=== PATIENT | female | born 1990 | race Caucasian/White ===

== ENCOUNTER 2019-09-29 18:36 | Emergency (ER) | payer MEDICAID, SELFPAY ==
[2019-09-29 18:43] VITALS: BP 151/86; PULSE 103; RESP 18; TEMP 37; O2SAT 100
--- NOTE | 2019-09-29 18:53 | XR_ITS ---
WS: [id number] CHEST XRAY TECHNIQUE: Portable chest. CLINICAL INFORMATION: fever and URI symptoms COMPARISON: FINDINGS: Heart: Normal cardiac silhouette. Lungs: Lungs are well aerated. No acute pulmonary infiltrates. No focal pneumonia. No consolidation o r pleural fluid. Bones: Mild thoracic curve convex right. XR/XR chest 1V portable [id number] IMPRESSION: No acute chest findings
--- NOTE | 2019-09-29 19:33 | W.ED.GENADLT ---
HPI - General Adult General: Chief complaint: General Medical Stated complaint: flu symptoms Time Seen by Provider: 09/29/19 19:26 History of Present Illness: HPI narrative: Patient is a 29-year-old female who comes into the knee with fever chills and body aches. She's had these symptoms for the past 3 days. She also has a productive cough with clear sputum. She has not taken any Tylenol or ibuprofen for her fevers at home. She is still drinking and eating normally. Associated symptoms: Deny chest pain, dyspnea, headache(s), nausea, rash, palpitations or vomiting Review of Systems Const: Reports: fever, chills and body aches; Denies: fatigue Eyes: Denies: change in vision or eye discomfort ENMT: Denies: throat pain, painful swallowing, nasal discharge or nasal congestion Card: Denies: chest pain, palpitations, edema, swelling of feet/ankles, shortness of breath on exertion or shortness of breath when lying down Resp: Reports: productive cough; Denies: shortness of breath or non-productive cough GI: Denies: abdominal pain, nausea, vomiting, diarrhea, constipation or blood in stool : Denies: flank pain, painful urination or blood in urine Musc: Denies: neck pain, back pain or extremity swelling Skin/Breast: Denies: rash or new lesion Neuro: Denies: headache, numbness in extremities or weakness in extremities PFSH ED PFSH: Social History Smoking and tobacco status: current every day smoker Physical Exam Const: COMMON NORMALS: oriented x3 HENMT: COMMON NORMALS: normocephalic HEAD & SCALP: normocephalic MOUTH: oral and palatal mucosa normal THROAT: posterior oropharynx normal and uvula midline Neck/C-Spine: COMMON NORMALS: supple GENERAL: Yes normal visual inspection Lymph: LYMPHATIC: no lymphadenopathy noted Resp: COMMON NORMALS: normal respiratory effort, no retractions, no use of accessory muscles and clear to auscultation bilaterally AUSCULTATION: clear to auscultation bilaterally Cardio: COMMON NORMALS: regular rate, regular rhythm, S1 normal heart sound, S2 normal heart sound, no gallops, no clicks, no murmurs and peripheral pulses 2+ throughout RATE: regular rate RHYTHM: regular rhythm HEART SOUNDS: S1 normal and S2 normal PERIPHERAL PULSES: pulses 2+ throughout GI: COMMON NORMALS: normal to inspection, nondistended, normoactive bowel sounds, soft to palpation, non-tender and no masses PALPATION: Yes soft : COMMON NORMALS: Yes no CVA tenderness BLADDER/KIDNEY EXAM: Yes no CVA tenderness Back/Pelvis: COMMON NORMALS: no CVA tenderness Extremity: COMMON NORMALS: normal to inspection and normal capillary refill Neuro: COMMON NORMALS: oriented x3 and moves all extremities Skin: COMMON NORMALS: no rashes or lesions noted GENERAL SKIN EXAM: no rashes or lesions noted and dry skin Course Vital Signs: Vital signs: Vital Signs Temperature 98.6 F 09/29/19 18:43 Pulse Rate 87 09/29/19 21:47 Respiratory Rate 18 09/29/19 21:47 Blood Pressure 122/74 09/29/19 21:47 Pulse Oximetry 98 09/29/19 21:47 MDM - General Adult Lab Data: Attestation: I reviewed the patient's lab results. Labs: Lab Results 09/29/19 Range/Units 19:30 Influenza Type A A g Negative (Negative) POC Influenza B Ag Negative (Negative) Imaging Data^: CXR: Attestation: I personally reviewed and interpreted this imaging study as follows: My impression: Possible bronchitis. No pneumonia or consolidation in the lungs. Pending final radiology report. Discharge Plan Discharge Patient Disposition: Home, Self-Care Clinical Impression: Bronchitis Condition: Stable Prescriptions: New azithromycin 250 mg tablet See Rx Instructions .ROUTE .COMPLEX Qty: 6 RF: 0 No Action No Known Home Medications RF: 0 Discharge Orders: Discharge Order (Routine); Ordered 09/29/19 Ordered By: Yomi Rodriguez Discharge Diet: Regular Discharge Activity: Increase activity as tolerated Patient Instructions: Acute Bronchitis (ED) Activity Restrictions/Additional Instructions: Follow-up with your PCP in 7-10 days for reevaluation. Drink plenty of fluids and stay hydrated. Take full course of antibiotics as prescribed. Take Tylenol or ibuprofen for fevers. Stand Alone Forms: Work/School Release Discharge Date/Time: 09/29/19 21:48 Coding Level of Care Code ED Batch Heat Treat Operator for Franck Fwd Exam Comprehensive
[2019-09-29 20:22] LABS: Influenza A by IFA Negative (Negative); Influenza B by IFA Negative (Negative)
[2019-09-29 21:47] VITALS: BP 122/74; PULSE 87; RESP 18; O2SAT 98
== END 2019-09-29 21:48 | disposition home or self-care (01) ==
PROVIDERS: Emergency Provider Physician Assistant
DX: J40 Bronchitis, not specified as acute or chronic (principal); F17.200 Nicotine dependence, unspecified, uncomplicated
CPT/HCPCS: 71045; 87804; 99281; 99283

== ENCOUNTER → 2019-11-10 10:30 | Outpatient (BNVA) | payer SELFPAY | PROVIDERS: Visit Provider Family Medicine | DX: R05 Cough (principal); R68.89 Other general symptoms and signs; R06.02 Shortness of breath | CPT/HCPCS: 87071; 87400; 87635; 87880 ==

== ENCOUNTER 2020-01-05 22:50 | Emergency (ER) | payer MEDICAID, SELFPAY ==
[2020-01-05 22:55] VITALS: BP 136/85; PULSE 107; RESP 14; TEMP 37.4; O2SAT 98; BMI 39.6
--- NOTE | 2020-01-05 23:01 | CTR_ITS ---
PROCEDURE INFORMATION: Exam: CT Abdomen And Pelvis Without Contrast Exam date and time: 01/05/2020 11:02 PM Age: 29 years old Clinical indication: Abdominal pain; Flank; Left; Additional info: Flank/abdominal pain TECHNIQUE: Imaging protocol: Computed tomography of the abdomen and pelvis without contrast. Radiation optimization: All CT scans at this facility use at least one of these dose optimization techniques: automated exposure control; mA and/or kV adjustment per patient size (includes targeted exams where dose is matched to clinical indication); or iterative reconstruction. COMPARISON: CT abdomen pelvis w con* [id number] 08/09/2018 1:12 PM RADIATION DOSE METRICS: Total DLP: 866.46 mGy-cm FINDINGS: Liver: Normal. No mass. Gallbladder and bile ducts: Normal. No calcified stones. No ductal dilation. Pancreas: Normal. No ductal dilation. Spleen: Normal. No splenomegaly. Adrenals: Normal. No mass. Kidneys and ureters: Normal. No renal stone or hydronephrosis. Stomach and bowel: Unremarkable. No obstruction. No mucosal thickening. Appendix: The appendix is normal. Intraperitoneal space: Unremarkable. No free air. No significant fluid collection. Vasculature: Unremarkable. No abdominal aortic aneurysm. Lymph nodes: Unremarkable. No enlarged lymph nodes. Bladder: Unremarkable as visualized. Reproductive: The uterus and ovaries appear normal. Bones/joints: Unremarkable. No acute fracture. Soft tissues: Unremarkable. CT/CT kidney stone [id number] IMPRESSION: No acute abnormality is seen in the abdomen or pelvis. Radiation Dose CTDIVOL = (mGy): DLP = 866.46 (mGy-cm)
[2020-01-05 23:31] LABS: Basophils % 0.3 %; Eosinophils # 0.2 10^3/uL (0.0-0.8); Eosinophils % 2.8 %; Hematocrit 39.5 % (37.0-47.0); Hemoglobin 12.9 g/dL (11.5-15.3); Lymphocytes # 3.5 10^3/uL (0.8-4.8); Lymphocytes % 40.2 %; Mean Corpuscular HGB Conc 32.7 g/dL (30.0-36.0); Mean Corpuscular Hemoglobin 31.2 pg (28.0-34.0); Mean Corpuscular Volume 95.6 fL (81-99); Mean Platelet Volume 9.3 fL (7.4-10.4); Monocytes # 0.7 10^3/uL (0.2-0.9); Monocytes % 8.6 %; Neutrophils # 4.1 10^3/uL (1.8-7.7); Neutrophils % 47.9 %; Nucleated Red Blood Cells % 0 %; Platelet Count 294 10^3/cmm (130-400); Red Blood Count 4.13 10^6/uL (4.1-5.3); Red Cell Distribution Width 13.3 % (12.1-15.1); White Blood Count 8.6 10^3/uL (4.0-10.0)
[2020-01-05] MEDS: morphine 4 mg/mL SDV 1 mL IVP (23:36)
[2020-01-05] MEDS: ondansetron 2 mg/ML SDV 2 mL 4 MG IVP (23:38)
[2020-01-05] MEDS: sodium chloride 0.9% 1,000 ML 100 ML IV (23:38)
[2020-01-05 23:44] LABS: Alanine Aminotransferase 12 U/L (0-33); Albumin Level 4.1 g/dL (3.5-5.2); Alkaline Phosphatase 65 IU/L (35-105); Anion Gap 15.7 (5-19); Aspartate Amino Transferase 15 U/L (0-32); Blood Urea Nitrogen 13 mg/dL (6-20); Calcium 9.4 mg/dL (8.5-10.5); Carbon Dioxide 23 mmol/L (22-29); Chloride 104 mmol/L (98-107); Glomerular Filtration Rate 117.4 mL/min (90-130); Glucose 114 mg/dL (65-115); Lipase 62 U/L (13-60); Osmolality Calculated 285 mOsm/kg (285-295); Potassium 3.7 mmol/L (3.5-5.1); Sodium 139 mmol/L (136-145); Total Bilirubin 0.2 mg/dL (0.15-1.2); Total Protein 7.1 g/dL (6.6-8.7)
[2020-01-05 23:48] LABS: HCG, Serum Qual Negative (Negative)
--- NOTE | 2020-01-05 23:57 | ED_ITS ---
HPI - Abdominal Pain General: Chief Complaint: Abdominal Pain Stated Complaint: side pain Time Seen by Provider: 01/05/20 23:01 History of Present Illness: HPI narrative: Toyin is a 29-year-old female who this evening had the abrupt onset of left flank pain. States the pain begins in her left upper back and radiates down around her groin. She is unaware of any blood in her urine but states she feels like she needs to pee constantly. She denies any similar symptoms in the past. She denies any fevers or chills or nausea and vomiting. She is unaware of anything that makes her symptoms better or worse and she is not tried anything at home for this up to this point. Associated Symptoms: Denies chills, coffee ground emesis, constipation, GI cramping, diarrhea, dysuria, fever(s), heartburn, hematochezia, hematuria, hematemesis, melena, nausea, syncope and vomiting Review of Systems Const: Denies: fever(s), chills, body aches, fatigue, malaise or diaphoresis Eyes: Denies: change in vision, blurry vision, blind spots or photophobia ENMT: Denies: throat pain, odynophagia, hoarseness, swelling of lips/tongue, ear or mastoid pain, ear discharge, change in hearing or nasal discharge Card: Denies: chest pain, palpitations, irregular heart rhythm, edema, lightheadedness, syncope, pre-syncope, dyspnea on exertion or orthopnea Resp: Denies: dyspnea, productive cough, non-productive cough, wheezing, hemoptysis or chest congestion GI: Reports: abdominal pain; Denies: nausea, vomiting, hematemesis, coffee ground emesis, heartburn, diarrhea, constipation, GI cramping, hematochezia or melena : Denies: flank pain, dysuria, urinary frequency, urinary urgency or hematuria Musc: Denies: neck pain, back pain, extremity pain, extremity swelling, joint pain, joint swelling, joint redness, joint warmth or joint stiffness Skin/Breast: Denies: rash, pruritus, erythema, skin tenderness or jaundice Neuro: Denies: headache(s), numbness in extremities, weakness in extremities, sensory changes, lack of coordination, difficulty walking, dizziness, vertigo, confusion or Slurred speech present Josiah/Lymph: Denies: easy bruising, easy bleeding, petechiae, purpura or enlarged lymph nodes All/Imm: Denies: urticaria, throat swelling, tongue swelling, facial swelling or acute wheezing PFSH ED PFSH: Social History Smoking and tobacco status: current every day smoker Physical Exam Const: COMMON NORMALS: no acute distress, patient oriented x3, no limitations, healthy appearing and well nourished GENERAL APPEARANCE: cooperative, well kempt and well developed HENMT: COMMON NORMALS: normocephalic, atraumatic, hearing grossly normal bilaterally, external ears normal, EAC's normal, Normal external nose present and moist oral mucous membranes HEAD & SCALP: normocephalic and atraumatic NOSE: Normal external nose present and Normal nares present EXTERNAL EAR: Yes external ears normal EXTERNAL AUDITORY CANAL: EAC's normal MOUTH: Normal oral and palatal mucosa present, lip normal and tongue normal Eye: COMMON NORMALS: Equal, round and reactive pupils present, EOMs intact bilaterally, conjunctivae normal and no scleral icterus GENERAL EYE: appearance normal, both eyes and all related structures ALIGNMENT: Yes alignment normal PERIORBITAL: periorbital findings normal EYELID: eyelids normal CONJUNCTIVA: Yes conjunctivae normal SCLERA: sclerae normal PUPIL: Yes Equal, round and reactive pupils present Neck/C-Spine: COMMON NORMALS: full ROM, no lymphadenopathy, supple, no meningeal signs and no JVD GENERAL: Yes normal visual inspection and Yes trachea midline Chest: COMMONS NORMALS: normal inspection of the chest and normal palpation of entire chest wall Resp: COMMON NORMALS: normal respiratory effort, No retractions, No use of accessory muscles and clear to auscultation bilaterally EFFORT & INSPECTION: Yes able to speak in complete sentences and Yes symmetric chest movement AUSCULTATION: clear to auscultation bilaterally, no crackles, no rales, no rhonchi and no wheezes Cardio: COMMON NORMALS: no JVD, regular rate, regular rhythm, S1 normal heart sound present, S2 normal heart sound present, No gallops present (Cardio), No clicks present (Cardio), No murmurs present (Cardio) and No rub (Cardio) RATE: regular rate RHYTHM: regular rhythm HEART SOUNDS: S1 normal heart sound present and S2 normal heart sound present GI: COMMON NORMALS: Soft to palpation and No hepatosplenomegaly present PALPATION: Yes Soft to palpation, No Tenderness to palpation present (GI), No Guarding due to palpation present (GI), No Rigid due to palpation, Yes No hepatosplenomegaly present, No Hernia present, No Palpable mass present and No Pulsatile mass present : COMMON NORMALS: Yes no CVA tenderness BLADDER/KIDNEY EXAM: Yes no CVA tenderness EXTERNAL FEMALE EXAM: No Hernia present Back/Pelvis: COMMON NORMALS: no CVA tenderness, thoracic and lumbar spine normal to inspection, no thoracic nor lumbar tenderness and thoraco-lumbar ROM normal Extremity: COMMON NORMALS: normal to inspection, full ROM, capillary refill normal, no joint enlargement, no clubbing, cyanosis or edema and no calf tenderness Neuro: COMMON NORMALS: patient oriented x3, CN's II-XII intact bilaterally, moves all extremities, no focal motor deficits and no sensory deficits noted MENINGEAL SIGNS: Yes no meningeal signs SPEECH: speech normal Psych: COMMON NORMALS: mental status grossly normal, Normal thought process present, cooperative, normal affect, speech normal and activity/motor behavior normal APPEARANCE: Yes well kempt SPEECH: Yes normal speech THOUGHT PROCESS: Normal thought process present Skin: COMMON NORMALS: no rashes or lesions noted, turgor normal, no jaundice, no petechiae and no mottling GENERAL SKIN EXAM: no rashes or lesions noted and turgor normal Course Vital Signs: Vital signs: Vital Signs Temperature 99.3 F 01/05/20 22:55 Pulse Rate 82 01/06/20 01:55 Respiratory Rate 16 01/06/20 01:55 Blood Pressure 114/68 01/06/20 01:55 Pulse Oximetry 98 01/06/20 01:55 MDM - Abdominal Pain 2 MDM Narrative: Medical decision making narrative: Toyin is a nice 29-year-old female who comes in with abrupt onset of left flank pain. There is no evidence of kidney stone, diverticulitis, gynecologic problem or infection on her CT or lab work. Patient has no vaginal discharge or bleeding. At this time her pain is completely gone and she is ready to go home. She is requesting a day off work. I have encouraged her to return to the ER for symptoms change or worsen but at this time she is feeling better and wants to be discharged. Lab Data: Attestation: I reviewed the patient's lab results. Labs: Lab Results 01/05/20 01/05/20 01/05/20 Range/Units 23:22 23:22 23:22 WBC 8.6 (4.0-10.0) 10^3/ uL RBC 4.13 (4.1-5.3) 10^6/u L Hgb 12.9 (11.5-15.3) g/dL Hct 39.5 (37.0-47.0) % MCV 95.6 (81-99) fL MCH 31.2 (28.0-34.0) pg MCHC 32.7 (30.0-36.0) g/dL RDW 13.3 (12.1-15.1) % Plt Count 294 (130-400) 10^3/c mm MPV 9.3 (7.4-10.4) fL Neut % (Auto) 47.9 % Lymph % (Auto) 40.2 % [place] % (Auto) 8.6 % Eos % (Auto) 2.8 % Baso % (Auto) 0.3 % Neut # (Auto) 4.1 (1.8-7.7) 10^3/u L Lymph # (Auto) 3.5 (0.8-4.8) 10^3/u L [place] # (Auto) 0.7 (0.2-0.9) 10^3/u L Eos # (Auto) 0.2 (0.0-0.8) 10^3/u L Baso # (Auto) 0.0 (0.0-0.1) 10^3/u L Nucleated RBC % (a uto) 0 % Nucleated RBCs # 0.0 /100WBC Sodium 139 (136-145) mmol/L Potassium 3.7 (3.5-5.1) mmol/L Chloride 104 (98-107) mmol/L Carbon Dioxide 23 (22-29) mmol/L Anion Gap 15.7 (5-19) BUN 13 (6-20) mg/dL Creatinine 0.6 (0.5-0.9) mg/dL GFR Calculation 117.4 (90-130) mL/min Glucose 114 (65-115) mg/dL Calculated Osmolal ity 285 (285-295) mOsm/k g Calcium 9.4 (8.5-10.5) mg/dL Total Bilirubin 0.2 (0.15-1.2) mg/dL AST 15 (0-32) U/L ALT 12 (0-33) U/L Alkaline Phosphata se 65 (35-105) IU/L Total Protein 7.1 (6.6-8.7) g/dL Albumin 4.1 (3.5-5.2) g/dL Globulin 3.0 (1.3-4.6) g/dL Lipase 62 H (13-60) U/L HCG, Qual Negative (Negative) Urine Color (Yellow) Urine Appearance (CLEAR) Urine pH (5-7) Ur Specific Gravit y (1.005-1.030) Urine Protein (Negative) Urine Glucose (UA) (Normal) Urine Ketones (Negative) Urine Blood (Negative) Urine Nitrate (Negative) Urine Bilirubin (NEGATIVE) Urine Urobilinogen (Negative) mg/dL Ur Leukocyte Natalia ase (Negative) Urine RBC (0-2) /hpf Urine WBC (0-5) /hpf Ur Squamous Epith Cells (0-5) Urine Bacteria (NONE) Urine Mucus 01/06/20 Range/Units 02:00 WBC (4.0-10.0) 10^3/ uL RBC (4.1-5.3) 10^6/u L Hgb (11.5-15.3) g/dL Hct (37.0-47.0) % MCV (81-99) fL MCH (28.0-34.0) pg MCHC (30.0-36.0) g/dL RDW (12.1-15.1) % Plt Count (130-400) 10^3/c mm MPV (7.4-10.4) fL Neut % (Auto) % Lymph % (Auto) % [place] % (Auto) % Eos % (Auto) % Baso % (Auto) % Neut # (Auto) (1.8-7.7) 10^3/u L Lymph # (Auto) (0.8-4.8) 10^3/u L [place] # (Auto) (0.2-0.9) 10^3/u L Eos # (Auto) (0.0-0.8) 10^3/u L Baso # (Auto) (0.0-0.1) 10^3/u L Nucleated RBC % (a uto) % Nucleated RBCs # /100WBC Sodium (136-145) mmol/L Potassium (3.5-5.1) mmol/L Chloride (98-107) mmol/L Carbon Dioxide (22-29) mmol/L Anion Gap (5-19) BUN (6-20) mg/dL Creatinine (0.5-0.9) mg/dL GFR Calculation (90-130) mL/min Glucose (65-115) mg/dL Calculated Osmolal ity (285-295) mOsm/k g Calcium (8.5-10.5) mg/dL Total Bilirubin (0.15-1.2) mg/dL AST (0-32) U/L ALT (0-33) U/L Alkaline Phosphata se (35-105) IU/L Total Protein (6.6-8.7) g/dL Albumin (3.5-5.2) g/dL Globulin (1.3-4.6) g/dL Lipase (13-60) U/L HCG, Qual (Negative) Urine Color Yellow (Yellow) Urine Appearance Clear (CLEAR) Urine pH 6 (5-7) Ur Specific Gravit y 1.020 (1.005-1.030) Urine Protein Neg (Negative) Urine Glucose (UA) Norm (Normal) Urine Ketones Negative (Negative) Urine Blood Neg (Negative) Urine Nitrate Negative (Negative) Urine Bilirubin Neg (NEGATIVE) Urine Urobilinogen Norm (Negative) mg/dL Ur Leukocyte Natalia ase Negative (Negative) Urine RBC Rare (0-2) /hpf Urine WBC Rare (0-5) /hpf Ur Squamous Epith Cells 0-4 H (0-5) Urine Bacteria 1+ H (NONE) Urine Mucus 1+ Imaging Data ^: CT Abd/Pel: Radiologist's impression: [address] [address] [address] Scan Report Signed Patient: Toyin Kearns Unit #: [id number] : 1990 Age/Sex: 29 / F ADM Date: 01/05/20 Loc: ER Room/Bed: Attending Dr: Ordering Provider/Ordering MD: Meaghan Chaudhari DO Date of Service: 01/05/20 Procedure(s): CT kidney stone 68082 Accession Number(s): [id number] Report Number: [id number] PROCEDURE INFORMATION: Exam: CT Abdomen And Pelvis Without Contrast Exam date and time: 01/05/2020 11:02 PM Age: 29 years old Clinical indication: Abdominal pain; Flank; Left; Additional info: Flank/abdominal pain TECHNIQUE: Imaging protocol: Computed tomography of the abdomen and pelvis without contrast. Radiation optimization: All CT scans at this facility use at least one of these dose optimization techniques: automated exposure control; mA and/or kV adjustment per patient size (includes targeted exams where dose is matched to clinical indication); or iterative reconstruction. COMPARISON: CT abdomen pelvis w con* [id number] 08/09/2018 1:12 PM RADIATION DOSE METRICS: Total DLP: 866.46 mGy-cm FINDINGS: Liver: Normal. No mass. Gallbladder and bile ducts: Normal. No calcified stones. No ductal dilation. Pancreas: Normal. No ductal dilation. Spleen: Normal. No splenomegaly. Adrenals: Normal. No mass. Kidneys and ureters: Normal. No renal stone or hydronephrosis. Stomach and bowel: Unremarkable. No obstruction. No mucosal thickening. Appendix: The appendix is normal. Intraperitoneal space: Unremarkable. No free air. No significant fluid collection. Vasculature: Unremarkable. No abdominal aortic aneurysm. Lymph nodes: Unremarkable. No enlarged lymph nodes. Bladder: Unremarkable as visualized. Reproductive: The uterus and ovaries appear normal. Bones/joints: Unremarkable. No acute fracture. Soft tissues: Unremarkable. CT/CT kidney stone [id number] IMPRESSION: No acute abnormality is seen in the abdomen or pelvis. Radiation Dose CTDIVOL = (mGy): DLP = 866.46 (mGy-cm) Dictated By: Karthik King MD Signed By: Karthik King MD Signed Date/Time: 01/06/20142 DD/ 0 Discharge Plan Discharge Patient Disposition: Home, Self-Care Clinical Impression: Acute left flank pain Condition: Stable Prescriptions: No Action No Known Home Medications RF: 0 Discharge Orders: Discharge Order (Routine); Ordered 01/06/20 Ordered By: Meaghan Chaudhari Referrals: Marisela Onofre MD [Physician] - 1-3 days Discharge Diet: Advance as tolerated Discharge Activity: Increase activity as tolerated Patient Instructions: Abdominal Pain (ED) Activity Restrictions/Additional Instructions: Please return to the ER immediately for any of the signs or symptoms listed on your discharge instruction sheets, worsening/changing of your symptoms, you are not getting better as quickly as expected, or for ANY other cause or concerns. If your pain returns or your symptoms change or worsen in any way please return to the ER immediately for recheck. Stand Alone Forms: Work/School Release Discharge Date/Time: 01/06/20 03:08 Coding Level of Care Code ED Helper Coordinator for Chg Fwd Exam Comprehensive
[2020-01-06 00:25] VITALS: BP 124/76; PULSE 76; RESP 16; O2SAT 99
[2020-01-06 01:55] VITALS: BP 114/68; PULSE 82; RESP 16; O2SAT 98
[2020-01-06 02:25] LABS: Bacteria Urine 1+; Bilirubin Urine Neg (NEGATIVE); Blood Urine Neg (Negative); Glucose Urine UA Norm (Normal); Ketones Urine Negative (Negative); Leukocyte Esterase Urine Negative (Negative); Mucus Urine 1+; Nitrate Urine Negative (Negative); Protein Urine Neg (Negative); RBC Urine RARE /hpf (0-2); Squamous Epithelial Cell Urine 0-4 (0-5); Urine Appearance Clear (CLEAR); Urine Color Yellow (Yellow); Urobilinogen Urine Norm (Negative); WBC Urine RARE /hpf (0-5); pH Urine 6 (5-7)
== END 2020-01-06 03:08 | disposition home or self-care (01) ==
PROVIDERS: Emergency Provider Emergency Medicine
DX: R10.9 Unspecified abdominal pain (principal); F17.210 Nicotine dependence, cigarettes, uncomplicated
CPT/HCPCS: 12345; 36415; 74176; 80053; 81001; 83690; 84703; 85025; 96361; 96374; 96375; 99282; 99283; J2270; J2405; J7030

== ENCOUNTER → 2020-04-13 11:24 | Outpatient (BNVA) | payer OTHER, SELFPAY | PROVIDERS: Visit Provider Nurse Practitioner Family | DX: R50.9 Fever, unspecified (principal); J06.9 Acute upper respiratory infection, unspecified; Z20.828 Contact with and (suspected) exposure to other viral communicable diseases | CPT/HCPCS: 87635 ==

== ENCOUNTER → 2020-05-23 17:08 | Outpatient (BNVA) | payer OTHER, MEDICAID, SELFPAY | PROVIDERS: Visit Provider Nurse Practitioner Family | DX: S86.001A Unspecified injury of right Achilles tendon, initial encounter (principal); X58.XXXA Exposure to other specified factors, initial encounter | CPT/HCPCS: 73610 ==

== ENCOUNTER 2020-05-24 11:35 | Outpatient (CLI) | payer OTHER, MEDICAID, SELFPAY | END 2020-05-24 11:36 | disposition home or self-care (01) | LOC: SPT 11:39 | PROVIDERS: Visit Provider Podiatrist Foot & Ankle Surgery | DX: Z47.89 Encounter for other orthopedic aftercare (principal); S86.00 Unspecified injury of Achilles tendon; X58.XXXD Exposure to other specified factors, subsequent encounter | CPT/HCPCS: 97760; L4361 ==

== ENCOUNTER 2020-06-20 15:35 | Outpatient (CLI) | payer OTHER, MEDICAID, SELFPAY ==
--- NOTE | 2020-06-20 15:55 | MR_ITS ---
WS: [id number] MRI RIGHT ANKLE without CONTRAST. COMPARISON: Ankle radiograph 05/23/2020. Multiplanar, multisequence imaging is performed without contrast. No marrow edema or acute fractures are identified. There is a small amount of soft tissue edema poste rior to the Achilles tendon and along the lateral mid foot. Additional subcutaneous edema over the me dial ankle. The edema along the medial ankle extends to about the posterior tibial tendon and there i s tiny amount of fluid in the tendon sheath at the medial malleolus. No tendon tear is identified. Th e peroneal brevis and longus tendons are normal course and caliber. Flexor hallucis longus tendon is normal. No osteochondral defects or loose bodies are identified. The deltoid ligament and the talofibular lig aments are intact. No full-thickness tears or signal abnormalities are appreciated. No fluid in the s ubtalar joint. MR/MR ankle RT wo con* [id number] IMPRESSION: 1. Soft tissue injury surrounding the ankle, most significant at the medial ma lleolus. 2. Soft tissue edema extends to abut the posterior tibialis tendon at the medi al malleolus. There is a small amount of fluid within the tendon sheath. No ten don tear is identified.
== END 2020-06-20 15:36 | disposition home or self-care (01) ==
PROVIDERS: Visit Provider Podiatrist Foot & Ankle Surgery
DX: S99.911A Unspecified injury of right ankle, initial encounter (principal); X58.XXXA Exposure to other specified factors, initial encounter; R60.0 Localized edema
CPT/HCPCS: 73721

== ENCOUNTER 2020-07-07 14:40 | Outpatient (CLI) | payer OTHER, MEDICAID, SELFPAY | END 2020-07-07 14:41 | disposition home or self-care (01) | LOC: SPT 14:40 | PROVIDERS: Visit Provider Podiatrist Foot & Ankle Surgery | DX: Z46.89 Encounter for fitting and adjustment of other specified devices (principal); S86.001D Unspecified injury of right Achilles tendon, subsequent encounter; X58.XXXD Exposure to other specified factors, subsequent encounter | CPT/HCPCS: 97760; L1902 ==

== ENCOUNTER 2020-07-15 10:09 | Emergency (ER) | payer OTHER, MEDICAID, SELFPAY ==
[2020-07-15 10:41] VITALS: BP 142/89; PULSE 93; RESP 16; TEMP 36.5; O2SAT 97; BMI 42.6
--- NOTE | 2020-07-15 12:10 | ED_ITS ---
HPI - Dental/Oral General: Chief complaint: Dental/Oral Stated complaint: dental pain/swelling Time Seen by Provider: 07/15/20 12:09 History of Present Illness: HPI Narrative: Patient is a 29-year-old female comes to the ED with dental pain and swelling. Patient says that the dental pain started about 2 days ago. She woke up this morning and had swelling to right maxillary region of face. Dental pain located around tooth #2. She is trying to contact a dentist to set up an appointment. Denies any fever, chills, nausea/vomiting, chest pain, shortness of breath. Associated symptoms: Denies fever(s) or odynophagia Review of Systems Const: Denies: fever(s), chills or fatigue Eyes: Denies: change in vision or eye discomfort ENMT: Reports: dental pain; Denies: throat pain, odynophagia, nasal discharge or nasal congestion Card: Denies: chest pain, palpitations, edema, swelling of feet/ankles, dyspnea on exertion or orthopnea Resp: Denies: dyspnea, productive cough or non-productive cough GI: Denies: abdominal pain, nausea, vomiting, diarrhea, constipation or hematochezia : Denies: flank pain, dysuria or hematuria Musc: Denies: neck pain, back pain or extremity swelling Skin/Breast: Denies: rash or new lesions Neuro: Denies: headache(s), numbness in extremities or weakness in extremities PFS ED PFSH: Medical History No pertinent past medical history Social History Smoking and tobacco status: current every day smoker Physical Exam Const: COMMON NORMALS: no acute distress, patient oriented x3 and alert GENERAL APPEARANCE: cooperative and comfortable HENMT: COMMON NORMALS: normocephalic HEAD & SCALP: normocephalic FACE & SINUS: edema on the left maxilla and Facial tenderness on exam of face and sinuses on the right maxilla MOUTH: Normal oral and palatal mucosa present TEETH & GINGIVA: Yes caries, Yes gingiva abnormal (Gingival edema and erythema seen around tooth #2.) edematous and Yes poor dentition THROAT: posterior oropharynx normal and uvula midline Eye: COMMON NORMALS: conjunctivae normal CONJUNCTIVA: Yes conjunctivae normal Neck/C-Spine: COMMON NORMALS: supple GENERAL: Yes normal visual inspection Resp: COMMON NORMALS: normal respiratory effort, No retractions, No use of accessory muscles and clear to auscultation bilaterally AUSCULTATION: clear to auscultation bilaterally Cardio: COMMON NORMALS: regular rate, regular rhythm, S1 normal heart sound present, S2 normal heart sound present, No gallops present (Cardio), No clicks present (Cardio), No murmurs present (Cardio) and Peripheral pulses 2+ throughout RATE: regular rate RHYTHM: regular rhythm HEART SOUNDS: S1 normal heart sound present and S2 normal heart sound present PERIPHERAL PULSES: Peripheral pulses 2+ throughout GI: COMMON NORMALS: Normal to inspection, nondistended, normoactive bowel sounds present, Soft to palpation, non-tender and no masses PALPATION: Yes Soft to palpation : COMMON NORMALS: Yes no CVA tenderness BLADDER/KIDNEY EXAM: Yes no CVA tenderness Back/Pelvis: COMMON NORMALS: no CVA tenderness Extremity: COMMON NORMALS: normal to inspection Neuro: COMMON NORMALS: patient oriented x3 and moves all extremities SENSORIUM/ORIENTATION: Yes alert Skin: GENERAL SKIN EXAM: dry skin Course Vital Signs: Vital signs: Vital Signs Temperature 97.7 F 07/15/20 10:41 Pulse Rate 93 07/15/20 10:41 Respiratory Rate 16 07/15/20 10:41 Blood Pressure 142/89 07/15/20 10:41 Pulse Oximetry 97 07/15/20 10:41 MDM - Dental/Oral MDM Narrative: Medical decision making narrative: Patient is a 29-year-old female comes the ED with dental pain. She has dental caries to tooth #2 with some gingival edema and erythema around tooth #2. Right maxillary facial swelling. Patient was sent home with a prescription of clindamycin. Call dentist and set up an appointment to get dental pain managed. Return to ED precautions given. Patient understood and agreed with plan. Discharge Plan Discharge Patient Disposition: Home Clinical Impression: Pain due to dental caries Condition: Stable Prescriptions: New clindamycin HCl 150 mg capsule 300 mg PO QID 7 Days Qty: 56 RF: 0 No Action (DME) cam boot See Rx Instructions .Route .MEDSUPPLY Qty: 1 RF: 0 meloxicam 15 mg tablet 15 mg PO ONCE Qty: 30 RF: 0 (DME) PTT Supinator brace See Rx Instructions .Route .MEDSUPPLY Qty: 1 RF: 0 Discharge Orders: Discharge ED (Routine); Ordered 07/15/20 Ordered By: Yomi Rodriguez Discharge Diet: Regular Discharge Activity: Resume usual activity Patient Instructions: Dental Caries (ED) Activity Restrictions/Additional Instructions: Contact dentist and set up an appoint with them for further evaluation of dental pain. Take full course of antibiotic as prescribed. Take [id number] Tylenol for pain. Return to the ER or your medical provider if condition worsens. Please read and understand discharge instructions. If any questions, please ask. Coding Level of Care Code ED Welfare Investigator for Franck Fwd Exam Comprehensive
[2020-07-15] MEDS: clindamycin 150 mg Capsule 300 MG PO (12:43)
[2020-07-15] MEDS: HYDROcodone-acetaminophen 7.5-325 mg Tablet 2 TAB PO (12:44)
== END 2020-07-15 12:47 | disposition home or self-care (01) ==
PROVIDERS: Emergency Provider Physician Assistant
DX: K02.9 Dental caries, unspecified (principal); F17.210 Nicotine dependence, cigarettes, uncomplicated
CPT/HCPCS: 12345; 99281; 99283

== ENCOUNTER 2020-11-01 23:19 | Emergency (ER) | payer MEDICAID, SELFPAY ==
[2020-11-01 23:40] VITALS: BP 153/109; PULSE 90; RESP 18; TEMP 36.9; O2SAT 99; BMI 42.0
--- NOTE | 2020-11-01 23:47 | XR_ITS ---
WS: [id number] PORTABLE CHEST HISTORY: Central chest pain. Acute onset. COMPARISON: 09/29/2019 Lungs are clear and well expanded. No pleural effusion or pneumothorax. Cardiac size: Normal. Mediastinum/Aorta: Normal mediastinum. No osseous abnormality seen. XR/XR chest 1V portable [id number] IMPRESSION: Unremarkable portable chest.
--- NOTE | 2020-11-02 00:03 | ED_ITS ---
HPI - Chest Pain General: Chief Complaint: Chest Pain Stated Complaint: CP, PAIN IN L SIDE FACE Time Seen by Provider: 11/01/20 23:34 Source: patient Mode of arrival: ambulatory Limitations: no limitations History of Present Illness: HPI narrative: 30-year-old female states been having chest pain since this evening. States been very sharp in nature is much worse with palpation and inspiration. States it's radiated to her neck slightly and is very sharp in nature. She denies any fever. She denies any cough. She denies any swelling in her legs. Denies any vomiting or diarrhea. MD complaint: chest pain Associated symptoms: Deny abdominal pain, dyspnea, fever(s), nausea or vomiting Review of Systems Const: Denies: fever(s), chills, body aches or change in appetite Eyes: Denies: blurry vision or eye discomfort ENMT: Denies: throat pain or dental pain Card: Reports: chest pain Resp: Denies: dyspnea GI: Denies: abdominal pain, nausea, vomiting or diarrhea : Denies: dysuria Musc: Denies: neck pain or back pain Skin/Breast: Denies: rash Neuro: Denies: headache(s) Psych: Denies: depression Josiah/Lymph: Denies: easy bruising All/Imm: Denies: urticaria PFSH ED PFSH: Medical History (Updated 11/02/20 @ 01:31 by Shade Durant MD) No pertinent past medical history Social History Smoking and tobacco status: current every day smoker Physical Exam Const: COMMON NORMALS: no acute distress, patient oriented x3 and healthy appearing HENMT: COMMON NORMALS: normocephalic and atraumatic HEAD & SCALP: normocephalic and atraumatic Eye: COMMON NORMALS: Equal, round and reactive pupils present and EOMs intact bilaterally PUPIL: Yes Equal, round and reactive pupils present Neck/C-Spine: COMMON NORMALS: full ROM and supple Chest: COMMONS NORMALS: normal inspection of the chest OTHER: Point tender in center chest Resp: COMMON NORMALS: normal respiratory effort, No retractions, No use of accessory muscles and clear to auscultation bilaterally AUSCULTATION: clear to auscultation bilaterally Cardio: COMMON NORMALS: regular rhythm and No murmurs present (Cardio) RATE: tachycardic RHYTHM: regular rhythm GI: COMMON NORMALS: Normal to inspection, nondistended, normoactive bowel sounds present, Soft to palpation, non-tender and no masses PALPATION: Yes Soft to palpation Extremity: COMMON NORMALS: normal to inspection and full ROM Neuro: COMMON NORMALS: patient oriented x3, moves all extremities and no focal motor deficits Psych: COMMON NORMALS: mental status grossly normal, Normal thought process present and cooperative THOUGHT PROCESS: Normal thought process present Skin: COMMON NORMALS: no rashes or lesions noted and no wounds GENERAL SKIN EXAM: no rashes or lesions noted Course Vital Signs: Vital signs: Vital Signs Temperature 98.4 F 11/01/20 23:40 Pulse Rate 90 11/01/20 23:40 Respiratory Rate 18 11/02/20 00:27 Blood Pressure 153/109 11/01/20 23:40 Pulse Oximetry 98 11/02/20 00:27 MDM - Chest Pain MDM Narrative: Medical decision making narrative: Patient presents with chest pains atypical in nature. He is point tender on exam and initial troponin D- dimer and EKG are all normal. She has been having pain for years. Has had multiple work-ups. She has no signs of pulmonary embolism or aortic dissection. She has no signs of acute coronary syndrome. She is stable for discharge and is to follow-up with PCP and return if worsening. Lab Data: Labs: Lab Results 11/02/20 11/02/20 11/02/20 Range/Units 00:35 00:35 00:35 WBC 11.4 H (4.0-10.0) 10^3/ uL RBC 4.22 (4.1-5.3) 10^6/u L Hgb 12.7 (11.5-15.3) g/dL Hct 39.4 (37.0-47.0) % MCV 93.4 (81-99) fL MCH 30.1 (28.0-34.0) pg MCHC 32.2 (30.0-36.0) g/dL RDW 13.0 (12.1-15.1) % Plt Count 301 (130-400) 10^3/c mm MPV 9.7 (7.4-10.4) fL Neut % (Auto) 57.5 % Lymph % (Auto) 33.1 % Esmeralda % (Auto) 7.3 % Eos % (Auto) 1.4 % Baso % (Auto) 0.4 % Neut # (Auto) 6.56 (1.8-7.7) 10^3/u L Lymph # (Auto) 3.8 (0.8-4.8) 10^3/u L Esmeralda # (Auto) 0.8 (0.2-0.9) 10^3/u L Eos # (Auto) 0.2 (0.0-0.8) 10^3/u L Baso # (Auto) 0.1 (0.0-0.1) 10^3/u L Nucleated RBC % (a uto) 0 % Nucleated RBCs # 0.0 /100WBC D-Dimer (0-0.59) ug/mIFE U Sodium 136 (136-145) mmol/L Potassium 4.1 (3.5-5.1) mmol/L Chloride 105 (98-107) mmol/L Carbon Dioxide 19 L (22-29) mmol/L Anion Gap 16.1 (5-19) BUN 18 (6-20) mg/dL Creatinine 0.5 (0.5-0.9) mg/dL GFR Calculation 143.9 H (90-130) mL/min Glucose 96 (65-115) mg/dL Calculated Osmolal ity 284 L (285-295) mOsm/k g Calcium 8.4 L (8.5-10.5) mg/dL Total Bilirubin 0.2 (0.15-1.2) mg/dL AST 10 (0-32) U/L ALT 10 (0-33) U/L Alkaline Phosphata se 57 (35-105) IU/L Troponin T Baselin e 6 (0-10) ng/L Total Protein 6.8 (6.6-8.7) g/dL Albumin 3.8 (3.5-5.2) g/dL Globulin 3.0 (1.3-4.6) g/dL 11/02/20 Range/Units 00:35 WBC (4.0-10.0) 10^3/ uL RBC (4.1-5.3) 10^6/u L Hgb (11.5-15.3) g/dL Hct (37.0-47.0) % MCV (81-99) fL MCH (28.0-34.0) pg MCHC (30.0-36.0) g/dL RDW (12.1-15.1) % Plt Count (130-400) 10^3/c mm MPV (7.4-10.4) fL Neut % (Auto) % Lymph % (Auto) % Esmeralda % (Auto) % Eos % (Auto) % Baso % (Auto) % Neut # (Auto) (1.8-7.7) 10^3/u L Lymph # (Auto) (0.8-4.8) 10^3/u L Esmeralda # (Auto) (0.2-0.9) 10^3/u L Eos # (Auto) (0.0-0.8) 10^3/u L Baso # (Auto) (0.0-0.1) 10^3/u L Nucleated RBC % (a uto) % Nucleated RBCs # /100WBC D-Dimer 0.34 (0-0.59) ug/mIFE U Sodium (136-145) mmol/L Potassium (3.5-5.1) mmol/L Chloride (98-107) mmol/L Carbon Dioxide (22-29) mmol/L Anion Gap (5-19) BUN (6-20) mg/dL Creatinine (0.5-0.9) mg/dL GFR Calculation (90-130) mL/min Glucose (65-115) mg/dL Calculated Osmolal ity (285-295) mOsm/k g Calcium (8.5-10.5) mg/dL Total Bilirubin (0.15-1.2) mg/dL AST (0-32) U/L ALT (0-33) U/L Alkaline Phosphata se (35-105) IU/L Troponin T Baselin e (0-10) ng/L Total Protein (6.6-8.7) g/dL Albumin (3.5-5.2) g/dL Globulin (1.3-4.6) g/dL Imaging Data^: CXR: Attestation: I personally reviewed and interpreted this imaging study as follows: My impression: no acute abnormality EKG Data^: EKG 1: Attestation: I personally reviewed and interpreted this EKG as follows: EKG interpretation date: 11/02/20 EKG interpretation time: 23:58 Interpretation: sinus tach hr [address] or t wave abnormalities qrs 80 qtc 386 Discharge Plan Discharge Patient Disposition: Home Clinical Impression: Chest pain Qualifiers: Chest pain type: unspecified Qualified Code(s): R07.9 - Chest pain, unspecified Condition: Stable Prescriptions: New tramadol 50 mg tablet 50 mg PO Q8H PRN (Reason: pain) Qty: 14 RF: 0 No Action (DME) cam boot See Rx Instructions .Route .MEDSUPPLY Qty: 1 RF: 0 meloxicam 15 mg tablet 15 mg PO ONCE Qty: 30 RF: 0 (DME) PTT Supinator brace See Rx Instructions .Route .MEDSUPPLY Qty: 1 RF: 0 Discharge Orders: Discharge ED (Routine); Ordered 11/02/20 Ordered By: Shade Durant Discharge Diet: Advance as tolerated Discharge Activity: Resume usual activity Patient Instructions: Chest Pain (ED), Opioid Safety Coding Level of Care Code ED Dry Chain Operator for Chg Fwd Exam Comprehensive
[2020-11-02] MEDS: aspirin 81 mg Chew Tablet 324 MG PO (00:26)
[2020-11-02 00:27] VITALS: RESP 18; O2SAT 98
[2020-11-02] MEDS: morphine 4 mg/mL SDV 1 mL IVP (00:27)
[2020-11-02 00:51] LABS: Basophils # 0.1 10^3/uL (0.0-0.1); Basophils % 0.4 %; Eosinophils # 0.2 10^3/uL (0.0-0.8); Eosinophils % 1.4 %; Hematocrit 39.4 % (37.0-47.0); Hemoglobin 12.7 g/dL (11.5-15.3); Lymphocytes # 3.8 10^3/uL (0.8-4.8); Lymphocytes % 33.1 %; Mean Corpuscular HGB Conc 32.2 g/dL (30.0-36.0); Mean Corpuscular Hemoglobin 30.1 pg (28.0-34.0); Mean Corpuscular Volume 93.4 fL (81-99); Mean Platelet Volume 9.7 fL (7.4-10.4); Monocytes # 0.8 10^3/uL (0.2-0.9); Monocytes % 7.3 %; Neutrophils # 6.56 10^3/uL (1.8-7.7); Neutrophils % 57.5 %; Nucleated Red Blood Cells % 0 %; Platelet Count 301 10^3/cmm (130-400); Red Blood Count 4.22 10^6/uL (4.1-5.3); White Blood Count 11.4 10^3/uL (4.0-10.0)
[2020-11-02 01:04] LABS: D Dimer 0.34 ug/mIFEU (0-0.59)
[2020-11-02 01:08] LABS: Troponin(5th) Baseline 6 ng/L (0-10)
[2020-11-02 01:21] LABS: Alanine Aminotransferase 10 U/L (0-33); Albumin Level 3.8 g/dL (3.5-5.2); Alkaline Phosphatase 57 IU/L (35-105); Anion Gap 16.1 (5-19); Aspartate Amino Transferase 10 U/L (0-32); Blood Urea Nitrogen 18 mg/dL (6-20); Calcium 8.4 mg/dL (8.5-10.5); Carbon Dioxide 19 mmol/L (22-29); Chloride 105 mmol/L (98-107); Glomerular Filtration Rate 143.9 mL/min (90-130); Glucose 96 mg/dL (65-115); Osmolality Calculated 284 mOsm/kg (285-295); Potassium 4.1 mmol/L (3.5-5.1); Sodium 136 mmol/L (136-145); Total Bilirubin 0.2 mg/dL (0.15-1.2); Total Protein 6.8 g/dL (6.6-8.7)
[2020-11-02 01:53] VITALS: BP 146/94; PULSE 90; RESP 18; O2SAT 99
== END 2020-11-02 01:40 | disposition home or self-care (01) ==
PROVIDERS: Emergency Provider Emergency Medicine
DX: R07.9 Chest pain, unspecified (principal); F17.210 Nicotine dependence, cigarettes, uncomplicated
CPT/HCPCS: 71045; 80053; 84484; 85025; 85378; 96374; 99283; J2270

== ENCOUNTER 2021-03-16 21:19 | Emergency (ER) | payer MEDICAID, SELFPAY ==
[2021-03-16 22:16] VITALS: BP 132/83; PULSE 97; RESP 18; TEMP 37.3; O2SAT 98
[2021-03-16 22:22] VITALS: BP 137/89; PULSE 87; RESP 18; TEMP 37.3; O2SAT 98
--- NOTE | 2021-03-16 22:39 | ED_ITS ---
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 Patient reports this evening she was playing with her kids on the floor and rolled over and strained her low back. Patient was unable to get up off the floor for about 2 hours she states and then called her sister who brought her to the ER for evaluation. Patient states that she was able to get up off the floor and after that she has been moving around a little bit better but continues to have significant low back pain radiating to the left hip. Patient appears well. Patient appears no acute distress. Review of Systems General: Reports: 10 or more systems reviewed and unremarkable except in HPI and below Musc: Reports: back pain [facility] ED PFSH: Medical History (Updated 03/16/21 @ 22:57 by ARTHUR Ocampo) No pertinent past medical history Social History Smoking and tobacco status: current every day smoker Physical Exam Const: COMMON NORMALS: no acute distress and patient oriented x3 GENERAL APPEARANCE: cooperative HENMT: COMMON NORMALS: normocephalic and Normal external nose present HEAD & SCALP: normal to inspection and normocephalic NOSE: Normal external nose present MOUTH: Normal oral and palatal mucosa present THROAT: posterior oropharynx normal Eye: GENERAL EYE: appearance normal, both eyes and all related structures Neck/C-Spine: COMMON NORMALS: full ROM Lymph: LYMPHATIC: no lymphadenopathy noted Chest: COMMONS NORMALS: normal inspection of the chest Resp: COMMON NORMALS: normal respiratory effort EFFORT & INSPECTION: Yes able to speak in complete sentences Cardio: COMMON NORMALS: regular rate and regular rhythm RATE: regular rate RHYTHM: regular rhythm GI: COMMON NORMALS: non-tender : COMMON NORMALS: Yes no CVA tenderness BLADDER/KIDNEY EXAM: Yes no CVA tenderness Back/Pelvis: COMMON NORMALS: no CVA tenderness LUMBAR SPINE/LOWER BACK: Yes paraspinal muscle tenderness Lumbar paraspinal muscle tenderness: left Extremity: COMMON NORMALS: normal to inspection Neuro: COMMON NORMALS: patient oriented x3 and moves all extremities Psych: COMMON NORMALS: mental status grossly normal and cooperative Skin: COMMON NORMALS: no rashes or lesions noted GENERAL SKIN EXAM: no rashes or lesions noted Course Vital Signs: Vital signs: Vital Signs Temperature 99.2 F 03/16/21 22:16 Pulse Rate 97 03/16/21 22:16 Respiratory Rate 18 03/16/21 22:16 Blood Pressure 132/83 03/16/21 22:16 Pulse Oximetry 98 03/16/21 22:16 MDM - Back Pain/Injury MDM Narrative: Medical decision making narrative: Patient presents with low back pain. Patient states that this evening she rolled over and strained her low back causing difficulty with ambulation and movement of the low back. Patient does report some occasional back pain but not this bad. On exam patient has tenderness in the left sacroiliac joint area. Patient does have tenderness radiating into her left buttocks. No central spinal tenderness is noted on palpation. Differential diagnosis includes but not limited to intervertebral disc disease, facet arthropathy, lumbar strain. Patient had no sign of cauda equina. Reviewed exam with patient with recommendations for treatment and follow-up. Patient reported understanding of care plan and need for follow-up or return to the ER. Patient be placed on a steroid prednisone 20 mg twice a day for 3 days. Be given some methocarbamol to help with muscle spasms. And written some tramadol to help with the pain. Patient was recommended to try to maintain normal activity as much as possible. Patient was recommended to follow-up with primary care. Case management was requested to assist patient with primary care follow-up. Discharge Plan Discharge Patient Disposition: Home Clinical Impression: Strain of lumbar region Qualifiers: Encounter type: initial encounter Qualified Code(s): S39.012A - Strain of mu scle, fascia and tendon of lower back, initial encounter Condition: Stable Prescriptions: New methocarbamol 750 mg tablet 750 mg PO Q6H PRN (Reason: back pain) Qty: 20 RF: 0 prednisone 20 mg tablet 20 mg PO BID Qty: 7 RF: 0 Continued tramadol 50 mg tablet 50 mg PO Q8H PRN (Reason: pain) Qty: 14 RF: 0 No Action (DME) cam boot See Rx Instructions .Route .MEDSUPPLY Qty: 1 RF: 0 meloxicam 15 mg tablet 15 mg PO ONCE Qty: 30 RF: 0 (DME) PTT Supinator brace See Rx Instructions .Route .MEDSUPPLY Qty: 1 RF: 0 Discharge Orders: Discharge ED (Routine); Ordered 03/16/21 Ordered By: Fab Muro Discharge Diet: Usual diet Discharge Activity: Increase activity as tolerated Patient Instructions: Acute Low Back Pain (ED), Opioid Safety Activity Restrictions/Additional Instructions: Maintain activity as much as possible. Gentle stretching and range of motion exercises. Drink plenty of water with medication. Follow-up with primary care in 3 to 4 days for recheck. Return to the ER for new concerns. Case management will contact you regarding a follow-up appointment with primary care provider. Stand Alone Forms: Work/School Release Coding Level of Care Code ED Electronic Prepress System Operator for Franck Stanford
[2021-03-16] MEDS: ketorolac 30 mg/mL INJ IM (23:16)
[2021-03-16] MEDS: HYDROcodone-acetaminophen 5-325 mg Tablet 1 TAB PO (23:26)
[2021-03-16 23:44] VITALS: BP 137/89; PULSE 87; RESP 18; TEMP 37.3; O2SAT 98
--- NOTE | 2021-03-21 11:06 | DCPLANNER ---
quality engineering manager had message to speak with patient about getting established with a primary care physician. quality engineering manager spoke with patient, she stated that she would love to have a primary care physician, but she does not have insurance at this time. quality engineering manager will mail patient both of the associate financial advisor applications for the hospital to patient to fill out and turn in.
== END 2021-03-16 23:47 | disposition home or self-care (01) ==
PROVIDERS: Emergency Provider Nurse Practitioner Family
DX: S39.012A Strain of muscle, fascia and tendon of lower back, initial encounter (principal); F17.200 Nicotine dependence, unspecified, uncomplicated; X50.0XXA Overexertion from strenuous movement or load, initial encounter
CPT/HCPCS: 96372; 99283; J1885

== ENCOUNTER 2021-07-29 19:36 | Emergency (ER) | payer MEDICAID, SELFPAY ==
[2021-07-29 19:45] VITALS: BP 144/85; PULSE 110; RESP 18; TEMP 37.7; O2SAT 96
--- NOTE | 2021-07-29 19:56 | ED_ITS ---
HPI - COVID General: Chief Complaint: COVID symptoms Stated Complaint: chest tightness, SOB Time Seen by Provider: 07/29/21 19:48 Triage information: Has fever, cough or shortness of breath . No known COVID + exposure last 14 days History of Present Illness: HPI Narrative: Ms. Kearns is a 30-year-old lady with history of tobaccoism who presents emergency department due to cough and shortness of breath. Symptom onset was subacute 4 to 5 days ago, cough has been dry and associated with chills. She has had coughing spells to the point of dizziness and nausea. She is tried [id number] medications without significant relief. Overall the intensity has been worsening and is now moderate. Not vaccinated against Covid. 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 No other specific exacerbating relieving factors identified. COVID Results: SARS-CoV-2 RNA (RT-PCR) Not detected (NOT DETECTED) 04/13/20 11:24 04/13/20 Review of Systems General: Reports: 10 or more systems reviewed and unremarkable except in HPI and below PFSH ED PFSH: Medical History (Updated 07/29/21 @ 22:56 by Aurelio Marquez MD) No pertinent past medical history Social History Smoking and tobacco status: current every day smoker Physical Exam Narrative: EXAM NARRATIVE: GENERAL/CONSTITUTIONAL -mildly ill-appearing. Eyes - PERRL, no conjunctival injection ENMT - Atraumatic external nose and ears. Moist mucous membranes NECK - supple. trachea midline CARDIOVASCULAR -tachycardic rate and regular rhythm. Normal peripheral perfusion. RESPIRATORY -coarse to auscultation bilaterally. Mild wheezing ABDOMEN/GI - Nontender/Nondistended. MSK - Extremities without obvious deformity or tenderness to palpation SKIN - Warm, Dry NEURO - alert and appropriately oriented. Moves all extremities equally. Course ED course: - Patient was seen and evaluated by me at bedside - Patient placed on cardiac monitors, IV access obtained - Initial evaluation notable for exam as above -Symptom treatment ordered - Labs notable for no significant hematologic Hologic abnormality. No acute electrolyte derangement procalcitonin negative - Imaging notable for no lobar consolidation - Upon serial reexamination after treatment the patient was improved - Based on patient history, evaluation, labs, and imaging as interpreted the most likely cause of the patient's condition is viral exacerbation of suspected underlying COPD with possible atypical infection. - The results of ED evaluation were discussed with the patient including prescriptions and/or symptomatic cares (if applicable) including appropriate and responsible use, followup plan, and return precautions. The patient verbalized understanding and felt safe for discharge. - Patient discharged in satisfactory condition. Vital Signs: Vital signs: Vital Signs Temperature 99.9 F H 07/29/21 19:45 Pulse Rate 105 H 07/29/21 22:38 Respiratory Rate 18 07/29/21 22:38 Blood Pressure 130/77 07/29/21 22:38 Pulse Oximetry 96 07/29/21 22:38 MDM - COVID Medical Records: Attestation: I reviewed the patient's medical records. Lab Data: Attestation: I reviewed the patient's lab results. Labs: Lab Results 07/29/21 07/29/21 07/29/21 20:27 20:27 20:55 WBC 7.0 10^3/uL 10^3/ uL (4.0-10.0) RBC 4.56 10^6/uL 10^6 /uL (4.1-5.3) Hgb 14.1 g/dL g/dL (11.5-15.3) Hct 41.0 % % (37.0-47.0) MCV 89.9 fl fl (81-99) MCH 30.9 pg pg (28.0-34.0) MCHC 34.4 g/dL g/dL (30.0-36.0) RDW 13.3 % % (12.1-15.1) Plt Count 256 10^3/cmm 10^3 /cmm (130-400) MPV 9.5 fL fL (7.4-10.4) Neut % (Auto) 68.3 % % Lymph % (Auto) 18.9 % % [place] % (Auto) 11.5 % % Eos % (Auto) 0.9 % % Baso % (Auto) 0.3 % % Neut # (Auto) 4.77 10^3/uL 10^3 /uL (1.8-7.7) Lymph # (Auto) 1.3 10^3/uL 10^3/ uL (0.8-4.8) [place] # (Auto) 0.8 10^3/uL 10^3/ uL (0.2-0.9) Eos # (Auto) 0.1 10^3/uL 10^3/ uL (0.0-0.8) Baso # (Auto) 0.0 10^3/uL 10^3/ uL (0.0-0.1) Nucleated RBC % (a uto) 0 % % Nucleated RBCs # 0.0 /100WBC /100W BC Sodium 137 mmol/L mmol/L (136-145) Potassium 4.1 mmol/L mmol/L (3.5-5.1) Chloride 104 mmol/L mmol/L (98-107) Carbon Dioxide 21 mmol/L L mmol/ L (22-29) Anion Gap 16.1 (5-19) BUN 10 mg/dL mg/dL (6-20) Creatinine 0.8 mg/dL mg/dL (0.5-0.9) GFR Calculation 83.7 mL/min L mL/ min (90-130) Glucose 86 mg/dL mg/dL (65-115) Calculated Osmolal ity 282 mOsm/kg L mOs m/kg (285-295) Calcium 8.3 mg/dL L mg/dL (8.5-10.5) Total Bilirubin 0.2 mg/dL mg/dL (0.15-1.2) AST 14 U/L U/L (0-32) ALT 10 U/L U/L (0-33) Alkaline Phosphata se 62 IU/L IU/L (35-105) C-Reactive Protein 8.2 mg/L H mg/L (0.0-4.9) Total Protein 7.6 g/dL g/dL (6.6-8.7) Albumin 4.2 g/dL g/dL (3.5-5.2) Globulin 3.4 g/dL g/dL (1.3-4.6) Procalcitonin 0.04 ng/mL ng/mL (0-0.5) Coronavirus 229E ( PCR) Not detected (NOT DETECT) Human Metapneumovi r PCR Entero/Rhino (PCR) SARS-CoV-2 (PCR) Not detected (NOT DETECT) 07/29/21 22:47 WBC RBC Hgb Hct MCV MCH MCHC RDW Plt Count MPV Neut % (Auto) Lymph % (Auto) [place] % (Auto) Eos % (Auto) Baso % (Auto) Neut # (Auto) Lymph # (Auto) [place] # (Auto) Eos # (Auto) Baso # (Auto) Nucleated RBC % (a uto) Nucleated RBCs # Sodium Potassium Chloride Carbon Dioxide Anion Gap BUN Creatinine GFR Calculation Glucose Calculated Osmolal ity Calcium Total Bilirubin AST ALT Alkaline Phosphata se C-Reactive Protein Total Protein Albumin Globulin Procalcitonin Coronavirus 229E ( PCR) Human Metapneumovi r PCR Detected A (NOT DETECT) Entero/Rhino (PCR) Not detected (NOT DETECT) SARS-CoV-2 (PCR) COVID Results: SARS-CoV-2 RNA (RT-PCR) Not detected (NOT DETECTED) 04/13/20 11:24 04/13/20 Discharge Plan Discharge Patient Disposition: Home Clinical Impression: Acute exacerbation of chronic obstructive pulmonary disease Condition: Stable Prescriptions: New doxycycline hyclate 100 mg tablet 100 mg PO Q12H 10 Days Qty: 20 RF: 0 prednisone 50 mg tablet 50 mg PO DAILY Qty: 5 RF: 0 No Action (DME) cam boot See Rx Instructions .Route .MEDSUPPLY Qty: 1 RF: 0 meloxicam 15 mg tablet 15 mg PO ONCE Qty: 30 RF: 0 (DME) PTT Supinator brace See Rx Instructions .Route .MEDSUPPLY Qty: 1 RF: 0 methocarbamol 750 mg tablet 750 mg PO Q6H PRN (Reason: back pain) Qty: 20 RF: 0 prednisone 20 mg tablet 20 mg PO BID Qty: 7 RF: 0 tramadol 50 mg tablet 50 mg PO Q8H PRN (Reason: pain) Qty: 14 RF: 0 Discharge Orders: Discharge ED (Routine); Ordered 07/29/21 Ordered By: Aurelio Marquez Discharge Diet: Usual diet Discharge Activity: Resume usual activity Patient Instructions: COPD (Chronic Obstructive Pulmonary Disease) (ED) Activity Restrictions/Additional Instructions: Thank you for visiting the emergency department. You were seen and evaluated for cough and shortness of breath as well as generalized malaise. The exact cause of your symptoms is unclear, may be viral in nature however given his smoking history will be treated for exacerbation of underlying lung disease. Please follow-up with your primary care provider. Return to the emergency department for worsening symptoms, inability to tolerate oral intake, chest pain, or anything else that you are concerned about and feel needs emergency department evaluation. Coding Level of Care Code ED Bank Manager for [facility]ck [facility]
--- NOTE | 2021-07-29 20:02 | XRR_ITS ---
PROCEDURE INFORMATION: Exam: XR Chest Exam date and time: 07/29/2021 8:02 PM Age: 30 years old Clinical indication: Cough and shortness of breath; Additional info: Cough, SOB TECHNIQUE: Imaging protocol: XR of the chest. Views: 1 view. COMPARISON: CR XR chest 1V portable [id number] 11/02/2020 12:05 AM FINDINGS: Lungs: Stable scarring in the upper lobes bilaterally. No focal consolidation. No pulmonary edema. Pleural spaces: No pleural effusion. No pneumothorax. Heart/Mediastinum: The cardiac silhouette and mediastinal contours are unremarkable. Bones/joints: Unremarkable for age. XR/XR chest 1V portable [id number] IMPRESSION: 1. No acute cardiopulmonary process. 2. Incidental/nonacute findings are listed in the report.
[2021-07-29 20:32] LABS: Basophils % 0.3 %; Eosinophils # 0.1 10^3/uL (0.0-0.8); Eosinophils % 0.9 %; Hemoglobin 14.1 g/dL (11.5-15.3); Lymphocytes # 1.3 10^3/uL (0.8-4.8); Lymphocytes % 18.9 %; Mean Corpuscular HGB Conc 34.4 g/dL (30.0-36.0); Mean Corpuscular Hemoglobin 30.9 pg (28.0-34.0); Mean Corpuscular Volume 89.9 fl (81-99); Mean Platelet Volume 9.5 fL (7.4-10.4); Monocytes # 0.8 10^3/uL (0.2-0.9); Monocytes % 11.5 %; Neutrophils # 4.77 10^3/uL (1.8-7.7); Neutrophils % 68.3 %; Nucleated Red Blood Cells % 0 %; Platelet Count 256 10^3/cmm (130-400); Red Blood Count 4.56 10^6/uL (4.1-5.3); Red Cell Distribution Width 13.3 % (12.1-15.1)
[2021-07-29 20:54] LABS: Alanine Aminotransferase 10 U/L (0-33); Albumin Level 4.2 g/dL (3.5-5.2); Alkaline Phosphatase 62 IU/L (35-105); Anion Gap 16.1 (5-19); Aspartate Amino Transferase 14 U/L (0-32); Blood Urea Nitrogen 10 mg/dL (6-20); C Reactive Protein 8.2 mg/L (0.0-4.9); Calcium 8.3 mg/dL (8.5-10.5); Carbon Dioxide 21 mmol/L (22-29); Chloride 104 mmol/L (98-107); Globulin 3.4 g/dL (1.3-4.6); Glomerular Filtration Rate 83.7 mL/min (90-130); Glucose 86 mg/dL (65-115); Osmolality Calculated 282 mOsm/kg (285-295); Potassium 4.1 mmol/L (3.5-5.1); Sodium 137 mmol/L (136-145); Total Bilirubin 0.2 mg/dL (0.15-1.2); Total Protein 7.6 g/dL (6.6-8.7)
[2021-07-29 20:57] LABS: Procalcitonin 0.04 ng/mL (0-0.5)
[2021-07-29] MEDS: sodium chloride 0.9% 500 ML IV (20:58)
[2021-07-29 21:06] VITALS: BP 183/89; PULSE 107; RESP 18; O2SAT 97
--- NOTE | 2021-07-29 21:25 | PC.NURSE ---
Pt. states that she has been tested several times for covid , while being swabbed for covid. Pt. up to bedside commode.
[2021-07-29 21:26] VITALS: BP 133/89; PULSE 104; RESP 18; O2SAT 96
[2021-07-29 22:20] VITALS: BP 132/79; PULSE 100; RESP 18; O2SAT 95
[2021-07-29 22:38] VITALS: BP 130/77; PULSE 105; RESP 18; O2SAT 96
[2021-07-29 22:46] LABS: Adenovirus Not Detected (NOT DETECT); Chlamydia Pneumoniae Not Detected (NOT DETECT); Coronavirus 229E,HKU1,NL63,OC4 Not Detected (NOT DETECT); Human Metapneumovirus Detected (NOT DETECT); Human Rhinovirus/Enterovirus Not Detected (NOT DETECT); Influenza A Not Detected (NOT DETECT); Influenza A H1 Not Detected (NOT DETECT); Influenza A H1-2009 Not Detected (NOT DETECT); Influenza A H3 Not Detected (NOT DETECT); Influenza B Not Detected (NOT DETECT); Mycoplasma Pneumoniae Not Detected (NOT DETECT); Parainfluenza Virus Type 1 Not Detected (NOT DETECT); Parainfluenza Virus Type 2 Not Detected (NOT DETECT); Parainfluenza Virus Type 3 Not Detected (NOT DETECT); Parainfluenza Virus Type 4 Not Detected (NOT DETECT); Respiratory Syncytial Virus A Not Detected (NOT DETECT); Respiratory Syncytial Virus B Not Detected (NOT DETECT); SARS-COV-2 Not Detected (NOT DETECT)
[2021-07-29 22:48] LABS: Human Metapneumovirus Detected (NOT DETECT); Human Rhinovirus/Enterovirus Not Detected (NOT DETECT); Results from Genmark
[2021-07-29] MEDS: doxycycline 100 mg Tablet PO (23:06)
== END 2021-07-29 23:27 | disposition home or self-care (01) ==
PROVIDERS: Emergency Provider Emergency Medicine
DX: J44.1 Chronic obstructive pulmonary disease with (acute) exacerbation (principal); F17.210 Nicotine dependence, cigarettes, uncomplicated; Z20.822 Contact with and (suspected) exposure to COVID-19
CPT/HCPCS: 71045; 80053; 84145; 85025; 86140; 87635; 87801; 96361; 96374; 99284; J2930; J7040

== ENCOUNTER → 2021-08-22 16:02 | Outpatient (BNVA) | payer OTHER, SELFPAY | PROVIDERS: Visit Provider Nurse Practitioner Family | DX: Z20.822 Contact with and (suspected) exposure to COVID-19 (principal); Z20.828 Contact with and (suspected) exposure to other viral communicable diseases | CPT/HCPCS: 87635 ==

== ENCOUNTER 2022-10-14 16:50 | Emergency (ER) | payer MEDICAID, SELFPAY ==
[2022-10-14 16:54] VITALS: BP 147/89; PULSE 83; RESP 13; TEMP 36.5; O2SAT 98
--- NOTE | 2022-10-14 17:21 | XRR_ITS ---
PROCEDURE INFORMATION: Exam: XR Left Ribs with PA Chest Exam date and time: 10/14/2022 5:33 PM Age: 32 years old Clinical indication: Injury or trauma; Fall; Chest wall; Blunt trauma; Additional info: Fall injury TECHNIQUE: Imaging protocol: Radiologic exam of the left ribs with PA chest. Views: 3 views COMPARISON: CR XR chest 1V portable [id number] 07/29/2021 8:09 PM FINDINGS: Lungs: Unremarkable. No consolidation. Pleural spaces: Unremarkable. No pleural effusion. No pneumothorax. Heart/Mediastinum: Unremarkable. No cardiomegaly. Bones/joints: Unremarkable. XR/XR ribs LT mn 3V w CXR1V [id number] IMPRESSION: No acute findings.
--- NOTE | 2022-10-14 17:29 | W.ED.FALL ---
HPI - Fall General: Chief Complaint: Fall Stated Complaint: Left side rib pain Time Seen by Provider: 10/14/22 17:29 History of Present Illness: Patient reports that she tripped going down the steps of her house and landed against a railroad tie that is used to block off the driveway. Patient landed on the left anterior ribs. The incident occurred on Saturday. Since then she has had increased pain and difficulty. Patient reports after working all day today she had increased pain and discomfort and came in to be evaluated. Patient appears nontoxic. Patient appears in moderate pain. Associated symptoms-after fall: Denies chest pain Review of Systems Const: Denies: fever(s) Card: Denies: chest pain Resp: Denies: dyspnea GI: Denies: nausea or vomiting Musc: Reports: other (Left anterior rib pain) Skin/Breast: Denies: rash PFSH ED PFSH: Medical History (Updated 10/14/22 @ 19:02 by ARTHUR Ocampo) No pertinent past medical history Social History Smoking and tobacco status: current every day smoker Physical Exam Const: COMMON NORMALS: alert HENMT: COMMON NORMALS: normocephalic HEAD & SCALP: normocephalic THROAT: posterior oropharynx normal Neck/C-Spine: COMMON NORMALS: full ROM CERVICAL SPINE: No Cervical spine tenderness Chest: CHEST: Yes tenderness (Left lower anterior ribs, no crepitus, no subcu emphysema) Resp: COMMON NORMALS: clear to auscultation bilaterally AUSCULTATION: clear to auscultation bilaterally Cardio: COMMON NORMALS: regular rate and regular rhythm RATE: regular rate RHYTHM: regular rhythm Neuro: SENSORIUM/ORIENTATION: Yes alert Skin: COMMON NORMALS: turgor normal GENERAL SKIN EXAM: turgor normal Course Vital Signs: Vital signs: Vital Signs Temperature 97.7 F 10/14/22 16:54 Pulse Rate 80 10/14/22 17:30 Respiratory Rate 16 10/14/22 17:30 Blood Pressure 135/96 10/14/22 17:30 Pulse Oximetry 100 10/14/22 17:30 Oxygen Delivery Me thod 10/14/22 17:30 MDM - Fall Medical Decision Making 32-year-old female comes in for evaluation of right rib pain. On exam lungs are clear to auscultation. Patient has anterior rib tenderness. No subcu emphysema or crepitus is noted. Vital signs are normal. Differential diagnosis includes rib fracture, rib contusion, malingering. Chest x-ray and rib films were negative for any abnormality. Reviewed exam with patient with recommendations for treatment and follow-up. Patient reported understanding and agreed to plan. Lab Data Radiology Impressions Ribs X-Ray 10/14/22 17:21 IMPRESSION: No acute findings. Discharge Plan Discharge Patient Disposition: Home Clinical Impression: Rib pain on left side Condition: Stable Prescriptions: New hydrocodone-acetaminophen 5-325 mg tablet 1 tab PO Q8H PRN (Reason: pain (scale score 7-10)) Qty: 7 0RF No Action levofloxacin 750 mg tablet 750 mg PO DAILY 10 Days Qty: 10 0RF prednisone 20 mg tablet 60 mg PO DAILY 5 Days Qty: 15 0RF albuterol sulfate 90 mcg/actuation HFA aerosol inhaler 2 inh inhalation Q4H PRN (Reason: shortness of breath or wheezing) Qty: 6.7 0RF Discharge Orders: Discharge ED (Routine); Ordered 10/14/22 Ordered By: Fab Muro Discharge Diet: Usual diet Discharge Activity: Increase activity as tolerated Patient Instructions: Rib Contusion (ED), Opioid Safety Activity Restrictions/Additional Instructions: Activity as tolerated. Use acetaminophen and ibuprofen to control pain. Use ice and heat for further pain relief. Use hydrocodone for severe pain. Drink plenty of water with medication. Follow-up with primary care for further instruction. Return to ED for new concerns. Coding Level of Care Code ED Atmospheric Technician for [facility]
[2022-10-14 17:30] VITALS: BP 135/96; PULSE 80; RESP 16; O2SAT 100
[2022-10-14 19:21] VITALS: BP 134/74; PULSE 80; RESP 16; O2SAT 99
--- NOTE | 2022-10-16 16:16 | DCPLANNER ---
TCM called patient due to no primary care physician - patient declines at this time
== END 2022-10-14 19:22 | disposition home or self-care (01) ==
PROVIDERS: Emergency Provider Nurse Practitioner Family
DX: R07.81 Pleurodynia (principal); F17.210 Nicotine dependence, cigarettes, uncomplicated
CPT/HCPCS: 71101; 99283

== ENCOUNTER 2023-02-24 13:27 | Emergency (ER) | payer MEDICAID, SELFPAY ==
[2023-02-24 13:43] VITALS: BP 136/85; PULSE 82; RESP 16; TEMP 36.8; O2SAT 98; BMI 39.4
--- NOTE | 2023-02-24 15:11 | PC.NURSE ---
patient has been outside smoking
[2023-02-24 15:46] LABS: Basophils % 0.3 %; Eosinophils # 0.1 10^3/uL (0.0-0.8); Eosinophils % 1.4 %; Hematocrit 38.1 % (37.0-47.0); Hemoglobin 12.3 g/dL (11.5-15.3); Lymphocytes # 2.9 10^3/uL (0.8-4.8); Mean Corpuscular HGB Conc 32.3 g/dL (30.0-36.0); Mean Corpuscular Hemoglobin 30.9 pg (28.0-34.0); Mean Corpuscular Volume 95.7 fl (81-99); Mean Platelet Volume 9.5 fL (7.4-10.4); Monocytes # 0.7 10^3/uL (0.2-0.9); Monocytes % 6.4 %; Neutrophils # 6.34 10^3/uL (1.8-7.7); Neutrophils % 62.6 %; Nucleated Red Blood Cells % 0 %; Platelet Count 249 10^3/cmm (130-400); Red Blood Count 3.98 10^6/uL (4.1-5.3); Red Cell Distribution Width 13.2 % (12.1-15.1); White Blood Count 10.1 10^3/uL (4.0-10.0)
--- NOTE | 2023-02-24 16:08 | CTR_ITS ---
PROCEDURE INFORMATION: Exam: CT Head Without Contrast Exam date and time: 02/24/2023 4:50 PM Age: 32 years old Clinical indication: Weakness, extremity; Bilateral; Additional info: Unilateral weakness TECHNIQUE: Imaging protocol: Computed tomography of the head without contrast. Radiation optimization: All CT scans at this facility use at least one of these dose optimization techniques: automated exposure control; mA and/or kV adjustment per patient size (includes targeted exams where dose is matched to clinical indication); or iterative reconstruction. REPORTING DATA: Count of CT and Cardiac NM exams in prior 12 months: This patient has received 0 known CTs and 0 known cardiac nuclear medicine studies in the 12 months prior to the current study. COMPARISON: No relevant prior studies available. RADIATION DOSE METRICS: Total DLP (mGy-cm): 987.54 FINDINGS: Brain: Normal. No hemorrhage. Unremarkable white matter. No mass effect. Cerebral ventricles: No ventriculomegaly. Paranasal sinuses: Visualized sinuses are unremarkable. No fluid levels. Mastoid air cells: Visualized mastoid air cells are well aerated. Bones/joints: Unremarkable. No acute fracture. Soft tissues: Unremarkable. CT/CT head wo con* [id number] IMPRESSION: No acute intracranial abnormality.
[2023-02-24 16:13] LABS: HCG, Serum Qual Negative (Negative)
--- NOTE | 2023-02-24 16:19 | ED_ITS ---
Documented by User: Zaynab Fernandez PA-C 02/24/23 16:25 HPI - Weakness General: Chief complaint: Weakness Stated complaint: weakness Time Seen by Provider: 02/24/23 16:01 Source: patient Mode of arrival: ambulatory Limitations: no limitations History of Present Illness: 32-year-old female presents to the ER today for new onset numbness and tingling to the right side of her body. Patient reports this woke her up from sleep this morning. Patient reports in addition to the numbness and tingling located in her arm and right leg she also has pain with inspiration in the chest wall. Patient reports is worse on the right side than the left side. Patient denies any recent injury or illness. Patient denies any headaches. Denies any fever or chills. Patient has not taken anything for pain. Patient reports she was at work and was unable to complete tasks at work and had to leave. Patient denies any weakness on the right side but describes it more as numbness/tingl ing/feeling like her arm and leg are asleep on that side. Denies any history of migraines. Denies any history of strokes. Denies any new medications. Review of Systems General: Reports: 10 or more systems reviewed and unremarkable except in HPI and below PFSH ED PFSH: Medical History (Updated 02/24/23 @ 19:01 by SCOOTER Christy) No pertinent past medical history Social History Smoking and tobacco status: current every day smoker Physical Exam Const: COMMON NORMALS: no acute distress, average body habitus, patient oriented x3, no limitations, healthy appearing, alert and well nourished HENMT: COMMON NORMALS: normocephalic, atraumatic, external ears normal, TM's normal bilaterally, Normal external nose present, Normal nasal mucous membranes and turbinates present and moist oral mucous membranes HEAD & SCALP: normocephalic and atraumatic NOSE: Normal external nose present and Normal nasal mucous membranes and turbinates present EXTERNAL EAR: Yes external ears normal TYMPANIC MEMBRANE: TM's normal bilaterally Eye: COMMON NORMALS: Equal, round and reactive pupils present, EOMs intact bilaterally and conjunctivae normal CONJUNCTIVA: Yes conjunctivae normal PUPIL: Yes Equal, round and reactive pupils present Neck/C-Spine: COMMON NORMALS: full ROM, no lymphadenopathy and supple Chest: CHEST: Yes tenderness (anterior chest wall to deep palpation) Resp: COMMON NORMALS: normal respiratory effort, No retractions and clear to auscultation bilaterally AUSCULTATION: clear to auscultation bilaterally Cardio: COMMON NORMALS: regular rate, regular rhythm and No murmurs present (Cardio) RATE: regular rate RHYTHM: regular rhythm GI: COMMON NORMALS: Normal to inspection, nondistended, normoactive bowel sounds present, Soft to palpation and non-tender PALPATION: Yes Soft to palpation Back/Pelvis: COMMON NORMALS: thoracic and lumbar spine normal to inspection, no thoracic nor lumbar tenderness and thoraco-lumbar ROM normal Extremity: COMMON NORMALS: normal to inspection, full ROM and no pedal edema OTHER: Equal strength bilaterally in upper extremities and lower extremities. Equal production artist strength. Neuro: COMMON NORMALS: patient oriented x3 SENSORIUM/ORIENTATION: Yes alert Psych: COMMON NORMALS: mental status grossly normal, Normal thought process present and cooperative THOUGHT PROCESS: Normal thought process present Skin: COMMON NORMALS: no rashes or lesions noted and no wounds GENERAL SKIN EXAM: no rashes or lesions noted Course ED course: Patient presents to the ER today for very nonspecific complaints. She reports waking up this morning and having chest wall tenderness and pain with deep inspiration in addition to numbness and tingling on the right side of both her upper extremity and lower extremity. Patient denies any headaches or vision changes. No history of any type of stroke or neurological issues. Exam is mostly unremarkable other than some chest wall tenderness. Patient has equal strength bilaterally. We will get basic lab work and go ahead with a head CT. There is really nothing else to explain the upper and lower extremity unilateral tingling. Vital Signs: Vital signs: Vital Signs Temperature 98.3 F 02/24/23 19:27 Pulse Rate 74 02/24/23 19:27 Respiratory Rate 16 02/24/23 19:27 Blood Pressure 132/104 02/24/23 19:27 Pulse Oximetry 99 02/24/23 19:27 Oxygen Delivery Me thod Room Air 02/24/23 18:09 MDM - Weakness Lab Data 02/24/23 15:37 02/24/23 15:[address] 02/24/23 16:08 IMPRESSION: No acute intracranial abnormality. Chest X-Ray 02/24/23 18:12 IMPRESSION: No acute findings. Laboratory Results WBC 10.1 10^3/uL (4.0-10.0) H 02/24/23 15:37 RBC 3.98 10^6/uL (4.1-5.3) L 02/24/23 15:37 Hgb 12.3 g/dL (11.5-15.3) 02/24/23 15:37 Hct 38.1 % (37.0-47.0) 02/24/23 15:37 MCV 95.7 fl (81-99) 02/24/23 15:37 MCH 30.9 pg (28.0-34.0) 02/24/23 15:37 MCHC 32.3 g/dL (30.0-36.0) 02/24/23 15:37 RDW 13.2 % (12.1-15.1) 02/24/23 15:37 Plt Count 249 10^3/cmm (130-400) 02/24/23 15:37 MPV 9.5 fL (7.4-10.4) 02/24/23 15:37 Neut % (Auto) 62.6 % 02/24/23 15:37 Lymph % (Auto) 29.0 % 02/24/23 15:37 [place] % (Auto) 6.4 % 02/24/23 15:37 Eos % (Auto) 1.4 % 02/24/23 15:37 Baso % (Auto) 0.3 % 02/24/23 15:37 Neut # (Auto) 6.34 10^3/uL (1.8-7.7) 02/24/23 15:37 Lymph # (Auto) 2.9 10^3/uL (0.8-4.8) 02/24/23 15:37 [place] # (Auto) 0.7 10^3/uL (0.2-0.9) 02/24/23 15:37 Eos # (Auto) 0.1 10^3/uL (0.0-0.8) 02/24/23 15:37 Baso # (Auto) 0.0 10^3/uL (0.0-0.1) 02/24/23 15:37 Nucleated RBC % (auto) 0 % 02/24/23 15:37 Nucleated RBCs # 0.0 /100WBC 02/24/23 15:37 Sodium 140 mmol/L (136-145) 02/24/23 15:37 Potassium 3.5 mmol/L (3.5-5.1) 02/24/23 15:37 Chloride 106 mmol/L (98-107) 02/24/23 15:37 Carbon Dioxide 22 mmol/L (22-29) 02/24/23 15:37 Anion Gap 15.5 (5-19) 02/24/23 15:37 BUN 11 mg/dL (6-20) 02/24/23 15:37 Creatinine 0.6 mg/dL (0.5-0.9) 02/24/23 15:37 GFR Calculation 115.1 mL/min (90-130) 02/24/23 15:37 Glucose 108 mg/dL (65-115) 02/24/23 15:37 Calculated Osmolality 290 mOsm/kg (285-295) 02/24/23 15:37 Calcium 8.5 mg/dL (8.5-10.5) 02/24/23 15:37 TSH 1.69 uIU/mL (0.27-4.20) 02/24/23 15:37 HCG, Qual Negative (Negative) 02/24/23 15:37 Urine Color Straw (Yellow) 02/24/23 15:15 Urine Appearance Clear (CLEAR) 02/24/23 15:15 Urine pH 5 (5-7) 02/24/23 15:15 Ur Specific [place] 1.020 (1.005-1.030) 02/24/23 15:15 Urine Protein Neg (Negative) 02/24/23 15:15 Urine Glucose (UA) Norm (Normal) 02/24/23 15:15 Urine Ketones Negative (Negative) 02/24/23 15:15 Urine Blood Neg (Negative) 02/24/23 15:15 Urine Nitrate Negative (Negative) 02/24/23 15:15 Urine Bilirubin Neg (Negative) 02/24/23 15:15 Urine Urobilinogen Norm mg/dL (Negative) 02/24/23 15:15 Ur Leukocyte Esterase Negative (Negative) 02/24/23 15:15 Critical Care Time Critical Care Time: Critical Care Time: No Discharge Plan Discharge Patient Disposition: Home Clinical Impression: Acute costochondritis, Abnormal arm sensation, Abnormal sensation of leg Condition: Stable Prescriptions: New tizanidine 4 mg capsule 4 mg PO Q8H PRN (Reason: muscle spasticity) Qty: 20 0RF prednisone 20 mg tablet 20 mg PO BID 5 Days Qty: 10 0RF lidocaine 4 % adhesive patch,medicated 1 patch topical DAILY Qty: 10 0RF Rx Instructions: may leave on for up to 12 hrs No Action levofloxacin 750 mg tablet 750 mg PO DAILY 10 Days Qty: 10 0RF prednisone 20 mg tablet 60 mg PO DAILY 5 Days Qty: 15 0RF albuterol sulfate 90 mcg/actuation HFA aerosol inhaler 2 inh inhalation Q4H PRN (Reason: shortness of breath or wheezing) Qty: 6.7 0RF hydrocodone-acetaminophen 5-325 mg tablet 1 tab PO Q8H PRN (Reason: pain (scale score 7-10)) Qty: 7 0RF Discharge Orders: Discharge ED (Routine); Ordered 02/24/23 Ordered By: Teresa Hurd Discharge Diet: As Directed Discharge Activity: Increase activity as tolerated Patient Instructions: Costochondritis (ED) Activity Restrictions/Additional Instructions: The CT of your head showed no signs of any bleeds, or masses which could be causing the neurological symptoms to the right side of your body. The chest x- ray was negative for any signs of underlying lung issues or bony injury. After speaking to your original provider, she indicated she would like to start treatment for a costochondritis pain and I provided you medication to take at home. You can use Tylenol and ibuprofen as well. You can apply heat to the area for 15 to 20 minutes at a time to help with discomfort. I have also requested a follow-up appointment with a primary care doctor to go over your ER evaluation here today and to discuss any residual symptoms she may still be experiencing. Stand Alone Forms: Work/School Release Sign Out Sign Out Data: Patient Sign Out occurred on 02/24/23 at 17:06. Patient's care was discussed, and care was transferred from Zaynab Fernandez PA-C to SCOOTER Christy. Sign Out Comment: waiting on head CT Last updated by Zaynab Fernandez PA-C at 02/24/23 16:39 Coding Level of Care Code ED Franchise Sales Representative for Chg Fwd Documented by User: SCOOTER Christy 02/24/23 21:58 HPI - Weakness General: Chief complaint: Weakness Stated complaint: weakness Time Seen by Provider: 02/24/23 16:01 PFS ED PFSH: Medical History (Updated 02/24/23 @ 19:01 by SCOOTER Christy) No pertinent past medical history Social History Smoking and tobacco status: current every day smoker Course Vital Signs: Vital signs: Vital Signs Temperature 98.3 F 02/24/23 19:27 Pulse Rate 74 02/24/23 19:27 Respiratory Rate 16 02/24/23 19:27 Blood Pressure 132/104 02/24/23 19:27 Pulse Oximetry 99 02/24/23 19:27 Oxygen Delivery Me thod Room Air 02/24/23 18:09 MDM - Weakness Medical Decision Making Teresa Hurd PA-C: Transfer of care at 1700 from Zaynab Fernandez PA-C. I was notified that the patient's work-up/physical examination was unremarkable. They were still waiting for the final CT reading before Jim DACOSTA was going to discharge with treatment for costochondritis. CT examination came back negative and, as I was going to talk to the patient about her negative CT work-up and to discuss discharge, nurse was walking into the room. Patient was heard yelling out and upon arrival to the room, patient was crying and yelling that it hurts to breathe . Patient's vital signs were stable. She was 99% on room air and she was nontachycardic. Discussed with nurse that we could obtain a chest x-ray and provide some medication to help with pain however, patient is driving so no muscle relaxers or narcotic pain medication here. Patient's x-ray is negative. Upon my reexamination, patient was reclined back in the bed on her cell phone. Explained to her the negative x-ray and explained that we will be treating for costochondritis. Patient was given a prescription for lidocaine patch, prednisone tablets, and a muscle relaxer. 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 I also referred her on to primary care to get established and to have follow-up from her ER visit today. Patient verbalized understanding and agreement to treatment plan. Differential Diagnosis Unlikely rhabdomyolysis (Intercostal muscle strain, pleurisy, costochondritis, intracranial abnormality) Lab Data 02/24/23 15:37 02/24/23 15:[address] 02/24/23 16:08 IMPRESSION: No acute intracranial abnormality. Chest X-Ray 02/24/23 18:12 IMPRESSION: No acute findings. Laboratory Results WBC 10.1 10^3/uL (4.0-10.0) H 02/24/23 15:37 RBC 3.98 10^6/uL (4.1-5.3) L 02/24/23 15:37 Hgb 12.3 g/dL (11.5-15.3) 02/24/23 15:37 Hct 38.1 % (37.0-47.0) 02/24/23 15:37 MCV 95.7 fl (81-99) 02/24/23 15:37 MCH 30.9 pg (28.0-34.0) 02/24/23 15:37 MCHC 32.3 g/dL (30.0-36.0) 02/24/23 15:37 RDW 13.2 % (12.1-15.1) 02/24/23 15:37 Plt Count 249 10^3/cmm (130-400) 02/24/23 15:37 MPV 9.5 fL (7.4-10.4) 02/24/23 15:37 Neut % (Auto) 62.6 % 02/24/23 15:37 Lymph % (Auto) 29.0 % 02/24/23 15:37 [place] % (Auto) 6.4 % 02/24/23 15:37 Eos % (Auto) 1.4 % 02/24/23 15:37 Baso % (Auto) 0.3 % 02/24/23 15:37 Neut # (Auto) 6.34 10^3/uL (1.8-7.7) 02/24/23 15:37 Lymph # (Auto) 2.9 10^3/uL (0.8-4.8) 02/24/23 15:37 [place] # (Auto) 0.7 10^3/uL (0.2-0.9) 02/24/23 15:37 Eos # (Auto) 0.1 10^3/uL (0.0-0.8) 02/24/23 15:37 Baso # (Auto) 0.0 10^3/uL (0.0-0.1) 02/24/23 15:37 Nucleated RBC % (auto) 0 % 02/24/23 15:37 Nucleated RBCs # 0.0 /100WBC 02/24/23 15:37 Sodium 140 mmol/L (136-145) 02/24/23 15:37 Potassium 3.5 mmol/L (3.5-5.1) 02/24/23 15:37 Chloride 106 mmol/L (98-107) 02/24/23 15:37 Carbon Dioxide 22 mmol/L (22-29) 02/24/23 15:37 Anion Gap 15.5 (5-19) 02/24/23 15:37 BUN 11 mg/dL (6-20) 02/24/23 15:37 Creatinine 0.6 mg/dL (0.5-0.9) 02/24/23 15:37 GFR Calculation 115.1 mL/min (90-130) 02/24/23 15:37 Glucose 108 mg/dL (65-115) 02/24/23 15:37 Calculated Osmolality 290 mOsm/kg (285-295) 02/24/23 15:37 Calcium 8.5 mg/dL (8.5-10.5) 02/24/23 15:37 TSH 1.69 uIU/mL (0.27-4.20) 02/24/23 15:37 HCG, Qual Negative (Negative) 02/24/23 15:37 Urine Color Straw (Yellow) 02/24/23 15:15 Urine Appearance Clear (CLEAR) 02/24/23 15:15 Urine pH 5 (5-7) 02/24/23 15:15 Ur Specific [place] 1.020 (1.005-1.030) 02/24/23 15:15 Urine Protein Neg (Negative) 02/24/23 15:15 Urine Glucose (UA) Norm (Normal) 02/24/23 15:15 Urine Ketones Negative (Negative) 02/24/23 15:15 Urine Blood Neg (Negative) 02/24/23 15:15 Urine Nitrate Negative (Negative) 02/24/23 15:15 Urine Bilirubin Neg (Negative) 02/24/23 15:15 Urine Urobilinogen Norm mg/dL (Negative) 02/24/23 15:15 Ur Leukocyte Esterase Negative (Negative) 02/24/23 15:15 Discharge Plan Discharge Patient Disposition: Home Clinical Impression: Acute costochondritis, Abnormal arm sensation, Abnormal sensation of leg Condition: Stable Prescriptions: New tizanidine 4 mg capsule 4 mg PO Q8H PRN (Reason: muscle spasticity) Qty: 20 0RF prednisone 20 mg tablet 20 mg PO BID 5 Days Qty: 10 0RF lidocaine 4 % adhesive patch,medicated 1 patch topical DAILY Qty: 10 0RF Rx Instructions: may leave on for up to 12 hrs No Action levofloxacin 750 mg tablet 750 mg PO DAILY 10 Days Qty: 10 0RF prednisone 20 mg tablet 60 mg PO DAILY 5 Days Qty: 15 0RF albuterol sulfate 90 mcg/actuation HFA aerosol inhaler 2 inh inhalation Q4H PRN (Reason: shortness of breath or wheezing) Qty: 6.7 0RF hydrocodone-acetaminophen 5-325 mg tablet 1 tab PO Q8H PRN (Reason: pain (scale score 7-10)) Qty: 7 0RF Discharge Orders: Discharge ED (Routine); Ordered 02/24/23 Ordered By: Teresa Hurd Discharge Diet: As Directed Discharge Activity: Increase activity as tolerated Patient Instructions: Costochondritis (ED) Activity Restrictions/Additional Instructions: The CT of your head showed no signs of any bleeds, or masses which could be causing the neurological symptoms to the right side of your body. The chest x- ray was negative for any signs of underlying lung issues or bony injury. After speaking to your original provider, she indicated she would like to start treatment for a costochondritis pain and I provided you medication to take at home. You can use Tylenol and ibuprofen as well. You can apply heat to the area for 15 to 20 minutes at a time to help with discomfort. I have also requested a follow-up appointment with a primary care doctor to go over your ER evaluation here today and to discuss any residual symptoms she may still be experiencing. Stand Alone Forms: Work/School Release Sign Out Sign Out Data: Patient Sign Out occurred on 02/24/23 at 17:06. Patient's care was discussed, and care was transferred from Zaynab Fernandez PA-C to SCOOTER Christy. Sign Out Comment: waiting on head CT Last updated by Zaynab Fernandez PA-C at 02/24/23 16:39 Coding Level of Care Code ED Franchise Sales Representative for Franck Stanford
[2023-02-24 16:20] LABS: Add Urine Microscopic? NO; Charge for UA Resulting for Rev
[2023-02-24 16:22] LABS: Bilirubin Urine Neg (Negative); Blood Urine Neg (Negative); Glucose Urine UA Norm (Normal); Ketones Urine Negative (Negative); Leukocyte Esterase Urine Negative (Negative); Nitrate Urine Negative (Negative); Protein Urine Neg (Negative); Urine Appearance Clear (CLEAR); Urine Color Straw (Yellow); Urobilinogen Urine Norm (Negative); pH Urine 5 (5-7)
[2023-02-24 16:29] LABS: Anion Gap 15.5 (5-19); Blood Urea Nitrogen 11 mg/dL (6-20); Calcium 8.5 mg/dL (8.5-10.5); Carbon Dioxide 22 mmol/L (22-29); Chloride 106 mmol/L (98-107); Glomerular Filtration Rate 115.1 mL/min (90-130); Glucose 108 mg/dL (65-115); Osmolality Calculated 290 mOsm/kg (285-295); Potassium 3.5 mmol/L (3.5-5.1); Sodium 140 mmol/L (136-145); Thyroid Stimulating Hormone 1.69 uIU/mL (0.27-4.20)
[2023-02-24 16:30] VITALS: BP 138/68; PULSE 80; RESP 20; O2SAT 94
[2023-02-24 17:22] VITALS: BP 121/72; PULSE 65; RESP 16; O2SAT 96
[2023-02-24 18:09] VITALS: BP 117/88; PULSE 100; RESP 17; O2SAT 95
--- NOTE | 2023-02-24 18:12 | XRR_ITS ---
PROCEDURE INFORMATION: Exam: XR Chest Exam date and time: 02/24/2023 6:31 PM Age: 32 years old Clinical indication: Pain; On breathing; Additional info: Chest pain, pain with breathing and mvmt TECHNIQUE: Imaging protocol: Radiologic exam of the chest. Views: 1 view. COMPARISON: CR XR ribs LT mn 3V w CXR1V [id number] 10/14/2022 5:33 PM FINDINGS: Lungs: Unremarkable. No consolidation. Pleural spaces: Unremarkable. No pleural effusion. No pneumothorax. Heart/Mediastinum: Unremarkable. No cardiomegaly. Bones/joints: Unremarkable. XR/XR chest 1V [id number] IMPRESSION: No acute findings.
[2023-02-24] MEDS: dexamethasone 10 mg/mL INJ IM (18:29)
[2023-02-24] MEDS: ketorolac 60 mg/2 mL INJ IM (18:39)
[2023-02-24 19:07] VITALS: BP 132/104; PULSE 74; RESP 16; O2SAT 99
[2023-02-24 19:27] VITALS: BP 132/104; PULSE 74; RESP 16; TEMP 36.8; O2SAT 99
--- NOTE | 2023-02-25 14:02 | DCPLANNER ---
manager application development had message to speak with patient about getting established with a primary care physician. manager application development spoke with patient, referred patient to [facility] where patient can apply for sliding scale.
== END 2023-02-24 19:28 | disposition home or self-care (01) ==
PROVIDERS: Emergency Medicine; Emergency Provider Physician Assistant
DX: M94.0 Chondrocostal junction syndrome [Tietze] (principal); R20.2 Paresthesia of skin; F17.210 Nicotine dependence, cigarettes, uncomplicated
CPT/HCPCS: 36415; 70450; 71045; 80048; 81003; 84443; 84703; 85025; 96372; 99284; J1100; J1885

== ENCOUNTER 2023-10-25 17:29 | Emergency (ER) | payer MEDICAID, SELFPAY ==
[2023-10-25 17:32] VITALS: BP 170/106; PULSE 94; RESP 20; TEMP 36.8; O2SAT 97
--- NOTE | 2023-10-25 17:45 | CTR_ITS ---
PROCEDURE INFORMATION: Exam: CTA Head With Contrast, Arteriography Exam date and time: 10/25/2023 6:28 PM Age: 33 years old Clinical indication: Pain; Headache; Patient HX: C/O severe DAO. History of migraines. ; Additional info: Worst headache/hx of migraine TECHNIQUE: Imaging protocol: Computed tomographic angiography of the head with contrast. Exam focused on the arteries. 3D rendering (Not supervised by radiologist): MIP and/or 3D reconstructed images were created by the technologist. Radiation optimization: All CT scans at this facility use at least one of these dose optimization techniques: automated exposure control; mA and/or kV adjustment per patient size (includes targeted exams where dose is matched to clinical indication); or iterative reconstruction. Contrast material: OMNI 350; Contrast volume: 100 ml; Contrast route: INTRAVENOUS (IV); COMPARISON: CT head wo con* [id number] 02/24/2023 4:50 PM RADIATION DOSE METRICS: Total DLP (mGy-cm): 1031.62 FINDINGS: ANTERIOR CIRCULATION: Right internal carotid artery: Intracranial segment is patent with no significant stenosis. No aneurysm. Right middle cerebral artery: No occlusion or significant stenosis. No aneurysm. Right anterior cerebral artery: No occlusion or significant stenosis. No aneurysm. Left internal carotid artery: Intracranial segment is patent with no significant stenosis. No aneurysm. Left middle cerebral artery: No occlusion or significant stenosis. No aneurysm. Left anterior cerebral artery: No occlusion or significant stenosis. No aneurysm. POSTERIOR CIRCULATION: Right vertebral artery: No occlusion or significant stenosis. No aneurysm. Left vertebral artery: No occlusion or significant stenosis. No aneurysm. Basilar artery: No occlusion or significant stenosis. No aneurysm. Right posterior cerebral artery: No occlusion or significant stenosis. No aneurysm. Left posterior cerebral artery: No occlusion or significant stenosis. No aneurysm. Brain: No definite mass, mass effect, or midline shift. Cerebral ventricles: No ventriculomegaly. Paranasal sinuses: Mucosal thickening in the left maxillary sinus. No air-fluid level. Dental: Multiple dental caries. Bones/joints: Unremarkable. No acute fracture. Soft tissues: Unremarkable. PROCEDURE INFORMATION: Exam: CTA Neck With Contrast Exam date and time: 10/25/2023 6:28 PM Age: 33 years old Clinical indication: Pain; Headache; Patient HX: C/O severe DAO. History of migraines. ; Additional info: Worst headache/hx of migraine TECHNIQUE: Imaging protocol: Computed tomographic angiography of the neck with contrast. Exam focused on the cervical segments of the vasculature. 3D rendering (Not supervised by radiologist): MIP and/or 3D reconstructed images were created by the technologist. Radiation optimization: All CT scans at this facility use at least one of these dose optimization techniques: automated exposure control; mA and/or kV adjustment per patient size (includes targeted exams where dose is matched to clinical indication); or iterative reconstruction. Contrast material: OMNI 350; Contrast volume: 100 ml; Contrast route: INTRAVENOUS (IV); COMPARISON: CT head wo con* [id number] 02/24/2023 4:50 PM RADIATION DOSE METRICS: Total DLP (mGy-cm): 1031.62 FINDINGS: Right common carotid artery: No stenosis. No dissection or occlusion. Right internal carotid artery: No stenosis of the extracranial segment. No dissection or occlusion. Right external carotid artery: No occlusion or stenosis of the origin. Left common carotid artery: No stenosis. No dissection or occlusion. Left internal carotid artery: No stenosis of the extracranial segment. No dissection or occlusion. Left external carotid artery: No occlusion or stenosis of the origin. Right vertebral artery: No stenosis. No dissection or occlusion. Left vertebral artery: No stenosis. No dissection or occlusion. Lymph nodes: Prominent hilar and mediastinal lymph nodes. Soft tissues: Normal. No significant soft tissue swelling. Bones/joints: No acute fracture. Lungs: Fibrosis, bronchiectasis, and cystic disease in both upper lobes. CT/CT angio headneck* [id number] IMPRESSION: 1. No large artery occlusion, stenosis, or aneurysm. 2. No acute intracranial abnormality. 3. Severe dental disease. IMPRESSION: 1. No large artery occlusion or stenosis. 2. Cystic disease in the upper lobes with scarring and bronchiectasis. This could relate to prior pneumocystis pneumonia or Langerhans cell histiocytosis. 3. Prominent mediastinal and hilar lymph nodes, most likely reactive or inflammatory. REFERENCES: NASCET CRITERIA. The degree of stenosis in the cervical segment of the internal carotid artery is based on NASCET criteria. Normal is no stenosis. Mild is less than 50% stenosis. Moderate is 50-69% stenosis. Severe is 70% to 99% stenosis. Total occlusion is no detectable patent lumen.
--- NOTE | 2023-10-25 17:48 | ED_ITS ---
Documented by User: SCOOTER Olson 10/25/23 20:28 HPI - Headache 2 General: Chief Complaint: Headache Stated Complaint: dr cazares, headache Time Seen by Provider: 10/25/23 17:38 Source: patient Mode of arrival: ambulatory Limitations: no limitations History of Present Illness: Patient is a 33-year-old female who presents to the emergency department as referred by urgent care due to headache for the past week. Patient reports a history of migraines but states this 1 feels different, and is the worst headache she is ever experienced. Normally, she is able to terminate the headache with Tylenol and environmental changes such as a dark room, but so far has not had any relief. The headache is worse in the morning, and she notes she is unable to eat or get anything done because of the pain. She is reporting some associated nausea, however denies any neurological deficits. She has no visual changes, and family denies any changes in her speech or mentation. She does not have a primary care provider and does not take anything regularly for prophylactic migraine treatment. Additionally, she arrives hypertensive but states that she does not take anything for high blood pressure. All other symptoms denied at this time. MD elicited complaint: headache Pertinent past history: migraines Onset (ago): week(s) (1) Onset description: suddenly and while at rest Location: generalized Severity: severe Quality & Timing: throbbing, constant, different than previous headaches and worst headache of life Exacerbating factors: exertion, movement of head/neck and light Relieving factors: nothing Associated symptoms: Reports nausea; Deny chest pain, fever(s), lightheadedness, rash or vomiting Treatments prior to arrival: acetaminophen Review of Systems 2 General: Reports: 10 or more systems reviewed and unremarkable except in HPI and below Const: Denies: fever(s), chills or fatigue Eyes: Denies: change in vision ENMT: Denies: throat pain, ear or mastoid pain or nasal discharge Card: Denies: chest pain, palpitations, swelling of feet/ankles or lightheadedness Resp: Denies: dyspnea, productive cough or wheezing GI: Reports: nausea; Denies: abdominal pain, vomiting or diarrhea : Denies: flank pain, difficulty voiding, dysuria or urinary frequency Musc: Denies: neck pain, back pain or joint pain Skin/Breast: Denies: rash Neuro: Reports: headache(s); Denies: numbness in extremities, weakness in extremities, sensory changes, dizziness, Slurred speech present or seizure-like activity PFSH ED 2 PFSH: Medical History (Updated 10/25/23 @ 20:25 by SCOOTER Olson) No pertinent past medical history Social History Smoking and tobacco/nicotine status: current every day tobacco/nicotine user Female Reproductive History: Date of last menstrual period: 10/25/22 Physical Exam 2 Const: COMMON NORMALS: patient oriented x3, no limitations, healthy appearing and alert GENERAL APPEARANCE: cooperative and well developed O RIENTATION/CONSCIOUSNESS: Yes awake, Yes oriented to person, Yes oriented to place and Yes oriented to time OTHER: Upon initial examination, patient in a dark room with sunglasses on HENMT: COMMON NORMALS: normocephalic, atraumatic, hearing grossly normal bilaterally, external ears normal and Normal external nose present HEAD & SCALP: normal to inspection, normocephalic and atraumatic FACE & SINUS: n ormal facial exam NOSE: Normal external nose present EXTERNAL EAR: Yes external ears normal MOUTH: Normal oral and palatal mucosa present THROAT: posterior oropharynx normal Eye: COMMON NORMALS: Equal, round and reactive pupils present, EOMs intact bilaterally and conjunctivae normal CONJUNCTIVA: Yes conjunctivae normal P UPIL: Yes Equal, round and reactive pupils present Neck/C-Spine: COMMON NORMALS: full ROM, supple and no JVD Resp: COMMON NORMALS: normal respiratory effort, No retractions, No use of accessory muscles and clear to auscultation bilaterally AUSCULTATION: clear to auscultation bilaterally Cardio: COMMON NORMALS: no JVD, regular rate, regular rhythm, No clicks present (Cardio), No murmurs present (Cardio) and No rub (Cardio) RATE: r egular rate RHYTHM: regular rhythm Neuro: COMMON NORMALS: patient oriented x3, CN's II-XII intact bilaterally, moves all extremities, no focal motor deficits and no sensory deficits noted SENSORIUM/ORIENTATION: Yes alert, Yes oriented to person, Yes oriented to place and Yes oriented to time OTHER: Neurologically intact Psych: COMMON NORMALS: mental status grossly normal and Normal thought process present THOUGHT PROCESS: Normal thought process present Skin: COMMON NORMALS: no rashes or lesions noted GENERAL SKIN EXAM: no rashes or lesions noted Course 2 Vital Signs: Vital signs: Vital Signs Temperature 98.3 F 10/25/23 20:34 Pulse Rate 86 10/25/23 20:34 Respiratory Rate 16 10/25/23 20:34 Blood Pressure 136/72 10/25/23 20:34 Pulse Oximetry 98 10/25/23 20:34 Oxygen Delivery Me thod Room Air 10/25/23 17:32 MDM - Headache Medical Decision Making This patient was seen and evaluated in the emergency department today due to a headache for the past week. She reports history of migraine headaches. Patient was previously seen at urgent care and was referred over here after stating his headache was the worst of her life. On examination, patient neurologically intact and vitals unremarkable aside from an elevated blood pressure, which she states she has not treated for as she has no primary care provider. She is not on any prophylactic migraine therapy. Basic laboratory work was negative. CTA head and neck did not show any signs of strokes, aneurysms, or other abnormalities. I began the patient on a migraine cocktail and upon recheck states that her headache had improved greatly. I informed her that she needs to establish with a primary care to discuss any need for prophylactic migraine therapy, to which she agrees. She will be discharged home and return precautions given. Lab Data I reviewed the patient's lab results. 10/25/23 17:57 10/25/23 17:57 Radiology Impressions Head/Neck CTA 10/25/23 17:45 IMPRESSION: 1. No large artery occlusion, stenosis, or aneurysm. 2. No acute intracranial abnormality. 3. Severe dental disease. IMPRESSION: 1. No large artery occlusion or stenosis. 2. Cystic disease in the upper lobes with scarring and bronchiectasis. This could relate to prior pneumocystis pneumonia or Langerhans cell histiocytosis. 3. Prominent mediastinal and hilar lymph nodes, most likely reactive or inflammatory. REFERENCES: NASCET CRITERIA. The degree of stenosis in the cervical segment of the internal carotid artery is based on NASCET criteria. Normal is no stenosis. Mild is less than 50% stenosis. Moderate is 50-69% stenosis. Severe is 70% to 99% stenosis. Total occlusion is no detectable patent lumen. Laboratory Results WBC 9.65 10^3/uL (3.29-11.43) 10/25/23 17:57 RBC 4.04 10^6/uL (3.85-5.65) 10/25/23 17:57 Hgb 12.40 g/dL (11.27-16.99) 10/25/23 17:57 Hct 37.0 % (36-47) 10/25/23 17:57 MCV 91.6 fl (85-98) 10/25/23 17:57 MCH 30.7 pg (27-33) 10/25/23 17:57 MCHC 33.5 g/dL (30-55) 10/25/23 17:57 RDW 13.7 % (12.1-15.1) 10/25/23 17:57 Plt Count 282 10^3/cmm (157-399) 10/25/23 17:57 MPV 9.2 fL (7.4-10.4) 10/25/23 17:57 Neut % (Auto) 54.5 % 10/25/23 17:57 Lymph % (Auto) 36.2 % 10/25/23 17:57 [place] % (Auto) 6.1 % 10/25/23 17:57 Eos % (Auto) 2.6 % 10/25/23 17:57 Baso % (Auto) 0.4 % 10/25/23 17:57 Neut # (Auto) 5.26 10^3/uL (1.8-7.7) 10/25/23 17:57 Lymph # (Auto) 3.5 10^3/uL (0.8-4.8) 10/25/23 17:57 [place] # (Auto) 0.6 10^3/uL (0.2-0.9) 10/25/23 17:57 Eos # (Auto) 0.3 10^3/uL (0.0-0.8) 10/25/23 17:57 Baso # (Auto) 0.0 10^3/uL (0.0-0.1) 10/25/23 17:57 Nucleated RBC % (auto) 0 % 10/25/23 17:57 Nucleated RBCs # 0.0 /100WBC 10/25/23 17:57 Sodium 140 mmol/L (136-145) 10/25/23 17:57 Potassium 3.7 mmol/L (3.5-5.1) 10/25/23 17:57 Chloride 108 mmol/L (98-107) H 10/25/23 17:57 Carbon Dioxide 22 mmol/L (22-29) 10/25/23 17:57 Anion Gap 13.7 (5-19) 10/25/23 17:57 BUN 17 mg/dL (6-20) 10/25/23 17:57 Creatinine 0.6 mg/dL (0.5-0.9) 10/25/23 17:57 GFR Calculation 114.4 mL/min (90-130) 10/25/23 17:57 Glucose 104 mg/dL (65-115) 10/25/23 17:57 Calculated Osmolality 292 mOsm/kg (285-295) 10/25/23 17:57 Calcium 8.6 mg/dL (8.5-10.5) 10/25/23 17:57 Total Bilirubin 0.2 mg/dL (0.15-1.2) 10/25/23 17:57 AST 15 U/L (0-32) 10/25/23 17:57 ALT 14 U/L (0-33) 10/25/23 17:57 Alkaline Phosphatase 57 U/L (35-105) 10/25/23 17:57 Total Protein 6.8 g/dL (6.6-8.7) 10/25/23 17:57 Albumin 4.0 g/dL (3.5-5.2) 10/25/23 17:57 Globulin 2.8 g/dL (1.3-4.6) 10/25/23 17:57 All radiology interpretation(s) finalized by discharge Discharge Plan Discharge Patient Disposition: Home Clinical Impression: Migraine Qualifiers: Migraine type: unspecified Status migrainosus presence: with status migrainosus Intractability: intractable Qualified Code(s): G43.911 - Migraine, unspecified, intractable, with status migrainosus Condition: Stable Prescriptions: No Action medroxyprogesterone [Depo-Provera] 150 mg/mL suspension IM Discharge Orders: Discharge ED (Routine); Ordered 10/25/23 Ordered By: Fareed Hu Discharge Diet: Usual diet Discharge Activity: Increase activity as tolerated Patient Instructions: Migraine Headache (ED) Activity Restrictions/Additional Instructions: Follow-up with primary care as discussed. Return with any new or concerning symptoms. Plenty of fluids. Coding Level of Care Code ED Air Quality Specialist for Chg Fwd Documented by User: Miguel Rm DO 10/26/23 06:15 HPI - Headache 2 General: Chief Complaint: Headache Stated Complaint: dr cazares, headache Time Seen by Provider: 10/25/23 17:38 [facility] ED 2 PFSH: Medical History (Updated 10/25/23 @ 20:25 by SCOOTER Olson) No pertinent past medical history Social History Smoking and tobacco/nicotine status: current every day tobacco/nicotine user Course 2 Vital Signs: Vital signs: Vital Signs Temperature 98.3 F 10/25/23 20:34 Pulse Rate 86 10/25/23 20:34 Respiratory Rate 16 10/25/23 20:34 Blood Pressure 136/72 10/25/23 20:34 Pulse Oximetry 98 10/25/23 20:34 Oxygen Delivery Me thod Room Air 10/25/23 17:32 MDM - Headache Medical Decision Making This patient was seen and evaluated in the emergency department today due to a headache for the past week. She reports history of migraine headaches. Patient was previously seen at urgent care and was referred over here after stating his headache was the worst of her life. On examination, patient neurologically intact and vitals unremarkable aside from an elevated blood pressure, which she states she has not treated for as she has no primary care provider. She is not on any prophylactic migraine therapy. Basic laboratory work was negative. CTA head and neck did not show any signs of strokes, aneurysms, or other abnormalities. I began the patient on a migraine cocktail and upon recheck states that her headache had improved greatly. I informed her that she needs to establish with a primary care to discuss any need for prophylactic migraine therapy, to which she agrees. She will be discharged home and return precautions given. Chart reviewed Lab Data 10/25/23 17:57 10/25/23 17:57 Radiology Impressions Head/Neck CTA 10/25/23 17:45 IMPRESSION: 1. No large artery occlusion, stenosis, or aneurysm. 2. No acute intracranial abnormality. 3. Severe dental disease. IMPRESSION: 1. No large artery occlusion or stenosis. 2. Cystic disease in the upper lobes with scarring and bronchiectasis. This could relate to prior pneumocystis pneumonia or Langerhans cell histiocytosis. 3. Prominent mediastinal and hilar lymph nodes, most likely reactive or inflammatory. REFERENCES: NASCET CRITERIA. The degree of stenosis in the cervical segment of the internal carotid artery is based on NASCET criteria. Normal is no stenosis. Mild is less than 50% stenosis. Moderate is 50-69% stenosis. Severe is 70% to 99% stenosis. Total occlusion is no detectable patent lumen. Laboratory Results WBC 9.65 10^3/uL (3.29-11.43) 10/25/23 17:57 RBC 4.04 10^6/uL (3.85-5.65) 10/25/23 17:57 Hgb 12.40 g/dL (11.27-16.99) 10/25/23 17:57 Hct 37.0 % (36-47) 10/25/23 17:57 MCV 91.6 fl (85-98) 10/25/23 17:57 MCH 30.7 pg (27-33) 10/25/23 17:57 MCHC 33.5 g/dL (30-55) 10/25/23 17:57 RDW 13.7 % (12.1-15.1) 10/25/23 17:57 Plt Count 282 10^3/cmm (157-399) 10/25/23 17:57 MPV 9.2 fL (7.4-10.4) 10/25/23 17:57 Neut % (Auto) 54.5 % 10/25/23 17:57 Lymph % (Auto) 36.2 % 10/25/23 17:57 [place] % (Auto) 6.1 % 10/25/23 17:57 Eos % (Auto) 2.6 % 10/25/23 17:57 Baso % (Auto) 0.4 % 10/25/23 17:57 Neut # (Auto) 5.26 10^3/uL (1.8-7.7) 10/25/23 17:57 Lymph # (Auto) 3.5 10^3/uL (0.8-4.8) 10/25/23 17:57 [place] # (Auto) 0.6 10^3/uL (0.2-0.9) 10/25/23 17:57 Eos # (Auto) 0.3 10^3/uL (0.0-0.8) 10/25/23 17:57 Baso # (Auto) 0.0 10^3/uL (0.0-0.1) 10/25/23 17:57 Nucleated RBC % (auto) 0 % 10/25/23 17:57 Nucleated RBCs # 0.0 /100WBC 10/25/23 17:57 Sodium 140 mmol/L (136-145) 10/25/23 17:57 Potassium 3.7 mmol/L (3.5-5.1) 10/25/23 17:57 Chloride 108 mmol/L (98-107) H 10/25/23 17:57 Carbon Dioxide 22 mmol/L (22-29) 10/25/23 17:57 Anion Gap 13.7 (5-19) 10/25/23 17:57 BUN 17 mg/dL (6-20) 10/25/23 17:57 Creatinine 0.6 mg/dL (0.5-0.9) 10/25/23 17:57 GFR Calculation 114.4 mL/min (90-130) 10/25/23 17:57 Glucose 104 mg/dL (65-115) 10/25/23 17:57 Calculated Osmolality 292 mOsm/kg (285-295) 10/25/23 17:57 Calcium 8.6 mg/dL (8.5-10.5) 10/25/23 17:57 Total Bilirubin 0.2 mg/dL (0.15-1.2) 10/25/23 17:57 AST 15 U/L (0-32) 10/25/23 17:57 ALT 14 U/L (0-33) 10/25/23 17:57 Alkaline Phosphatase 57 U/L (35-105) 10/25/23 17:57 Total Protein 6.8 g/dL (6.6-8.7) 10/25/23 17:57 Albumin 4.0 g/dL (3.5-5.2) 10/25/23 17:57 Globulin 2.8 g/dL (1.3-4.6) 10/25/23 17:57 Discharge Plan Discharge Patient Disposition: Home Clinical Impression: Migraine Qualifiers: Migraine type: unspecified Status migrainosus presence: with status migrainosus Intractability: intractable Qualified Code(s): G43.911 - Migraine, unspecified, intractable, with status migrainosus Condition: Stable Prescriptions: No Action medroxyprogesterone [Depo-Provera] 150 mg/mL suspension IM Discharge Orders: Discharge ED (Routine); Ordered 10/25/23 Ordered By: Fareed Hu Discharge Diet: Usual diet Discharge Activity: Increase activity as tolerated Patient Instructions: Migraine Headache (ED) Activity Restrictions/Additional Instructions: Follow-up with primary care as discussed. Return with any new or concerning symptoms. Plenty of fluids. Coding Level of Care Code ED Air Quality Specialist for Franck Stanford
[2023-10-25 18:03] LABS: Basophils % 0.4 %; Eosinophils # 0.3 10^3/uL (0.0-0.8); Eosinophils % 2.6 %; Lymphocytes # 3.5 10^3/uL (0.8-4.8); Lymphocytes % 36.2 %; Mean Corpuscular HGB Conc 33.5 g/dL (30-55); Mean Corpuscular Hemoglobin 30.7 pg (27-33); Mean Corpuscular Volume 91.6 fl (85-98); Mean Platelet Volume 9.2 fL (7.4-10.4); Monocytes # 0.6 10^3/uL (0.2-0.9); Monocytes % 6.1 %; Neutrophils # 5.26 10^3/uL (1.8-7.7); Neutrophils % 54.5 %; Nucleated Red Blood Cells % 0 %; Platelet Count 282 10^3/cmm (157-399); Red Blood Count 4.04 10^6/uL (3.85-5.65); Red Cell Distribution Width 13.7 % (12.1-15.1); White Blood Count 9.65 10^3/uL (3.29-11.43)
[2023-10-25 18:20] LABS: Alanine Aminotransferase 14 U/L (0-33); Alkaline Phosphatase 57 U/L (35-105); Anion Gap 13.7 (5-19); Aspartate Amino Transferase 15 U/L (0-32); Blood Urea Nitrogen 17 mg/dL (6-20); Calcium 8.6 mg/dL (8.5-10.5); Carbon Dioxide 22 mmol/L (22-29); Chloride 108 mmol/L (98-107); Creatinine Clr Calc Pharmacy 147.0807; Globulin 2.8 g/dL (1.3-4.6); Glomerular Filtration Rate 114.4 mL/min (90-130); Glucose 104 mg/dL (65-115); Osmolality Calculated 292 mOsm/kg (285-295); Potassium 3.7 mmol/L (3.5-5.1); Sodium 140 mmol/L (136-145); Total Bilirubin 0.2 mg/dL (0.15-1.2); Total Protein 6.8 g/dL (6.6-8.7)
[2023-10-25] MEDS: iohexol 350 mg/mL 500 mL Btl (per mL) IV (18:27)
[2023-10-25] MEDS: sodium chloride 0.9% 1,000 ML 999 ML IV (19:25)
[2023-10-25] MEDS: dexamethasone 10 mg/mL INJ 8 MG IVP (19:27)
[2023-10-25] MEDS: ondansetron 2 mg/ML SDV 2 mL 4 MG IVP (19:28)
[2023-10-25] MEDS: ketorolac 60 mg/2 mL INJ 30 MG IVP (19:29)
[2023-10-25] MEDS: diphenhydrAMINE 50 mg/mL SDV 1mL IVP (19:30)
[2023-10-25 20:34] VITALS: BP 136/72; PULSE 86; RESP 16; TEMP 36.8; O2SAT 98
--- NOTE | 2023-10-29 10:41 | DCPLANNER ---
Note sent to [facility] for PCP establishment
== END 2023-10-25 20:35 | disposition home or self-care (01) ==
PROVIDERS: Emergency Provider Physician Assistant
DX: G43.911 Migraine, unspecified, intractable, with status migrainosus (principal); Z72.0 Tobacco use
CPT/HCPCS: 36415; 70496; 70498; 80053; 85025; 96361; 96374; 96375; 99285; J1100; J1200; J1885; J2405; J7030; Q9967

== ENCOUNTER 2024-04-07 09:18 | Emergency (ER) | payer MEDICAID, SELFPAY ==
[2024-04-07 09:20] VITALS: BP 143/91; PULSE 88; TEMP 36.8; O2SAT 99; BMI 41.8
--- NOTE | 2024-04-07 09:21 | ECG_ITS ---
[facility] Test Date: 2024-04-07 Pat Name: Toyin Kearns Department: Room: Gender: Female [employer]er: : 1990 Requested By: Miguel King Order Number: [id number] Edie MD: Raleigh Koch M.D. Measurements Intervals [place] Rate: 85 P: 59 KS: 164 QRS: 56 QRSD: 83 T: 38 QT: 347 QTc: 413 Interpretive Statements SINUS RHYTHM Compared to ECG 05/21/2018 21:11:10 No significant changes Electronically Signed On 04-07-2024 16:41:26 CDT by Raleigh Koch M.D. [email or web address] A [id number]
--- NOTE | 2024-04-07 09:21 | XR_ITS ---
WS: [id number] Examination: XR chest 1V portable [id number] Reason for Exam: dyspnea/cough Date: 04/07/2024 Comparison: 02/24/2023 Findings: The heart is not enlarged. The mediastinum is not widened. There is no edema or large effusion. The lung markings appear increased in the upper lungs. This may be chronic in nature. No new consolid ations identified.. XR/XR chest 1V portable [id number] Impression: The markings in the upper lung zones are increased, similar to the previous brian dy. PA and lateral imaging would be helpful for further evaluation. No new cons olidation is noted.
[2024-04-07 09:39] LABS: Basophils % 0.5 %; Eosinophils # 0.1 10^3/uL (0.0-0.8); Eosinophils % 1.3 %; Hematocrit 37.7 % (36-47); Lymphocytes # 2.8 10^3/uL (0.8-4.8); Lymphocytes % 35.3 %; Mean Corpuscular HGB Conc 33.7 g/dL (30-55); Mean Corpuscular Hemoglobin 30.8 pg (27-33); Mean Corpuscular Volume 91.3 fl (85-98); Mean Platelet Volume 9.4 fL (7.4-10.4); Monocytes # 0.5 10^3/uL (0.2-0.9); Monocytes % 6.3 %; Neutrophils % 56.3 %; Nucleated Red Blood Cells % 0 %; Platelet Count 276 10^3/cmm (157-399); Red Blood Count 4.13 10^6/uL (3.85-5.65); Red Cell Distribution Width 13.2 % (12.1-15.1)
[2024-04-07 09:58] LABS: Alanine Aminotransferase 10 U/L (0-33); Albumin Level 4.1 g/dL (3.5-5.2); Alkaline Phosphatase 57 U/L (35-105); Aspartate Amino Transferase 13 U/L (0-32); Blood Urea Nitrogen 12 mg/dL (6-20); Calcium 8.4 mg/dL (8.5-10.5); Carbon Dioxide 20 mmol/L (22-29); Chloride 106 mmol/L (98-107); Creatinine Clr Calc Pharmacy 149.3516; Globulin 3.2 g/dL (1.3-4.6); Glomerular Filtration Rate 114.4 mL/min (90-130); Glucose 92 mg/dL (65-115); Osmolality Calculated 285 mOsm/kg (285-295); Sodium 138 mmol/L (136-145); Total Bilirubin 0.2 mg/dL (0.15-1.2); Total Protein 7.3 g/dL (6.6-8.7)
[2024-04-07 10:00] VITALS: BP 127/87; PULSE 75; O2SAT 100
--- NOTE | 2024-04-07 10:01 | W.ED.CHESTPA ---
HPI - Chest Pain General: Chief Complaint: Chest Pain Stated Complaint: CP Time Seen by Provider: 04/07/24 09:20 History of Present Illness: 33-year-old female presents emergency room with complaint of chest pain. Started hurting last night around 11:00. It is worse when she moves in particular motions. Worse when she takes a deep breath or palpation across the anterior chest wall. Not have any radiation of the neck back or arms. He also mentions that bending over makes it worse. Associated symptoms: Deny abdominal pain, dyspnea or fever(s) Related Data Home Medications Medication Instructions Recorded Confirmed medroxyprogesterone 150 mg/mL mg IM 09/03/23 02/11/24 intramuscular suspension (Depo-Provera) Previous Rx's Medication Instructions Recorded albuterol sulfate 90 mcg/actuation 2 puff inhalation QID #6.7 grams 12/24/23 aerosol inhaler (Ventolin HFA) doxycycline hyclate 100 mg tablet 100 mg PO BID 7 days #14 tabs 02/11/24 diclofenac sodium 75 mg 75 mg PO Q12H PRN pain #20 tabs 04/07/24 tablet,delayed release Allergies Allergy/AdvReac Type Severity Reaction Status Date / Time naproxen Allergy Unknown Verified 04/07/24 09:30 Sulfa (Sulfonamide Allergy ALGY-Difficulty Verified 04/07/24 09:30 Antibiotics) Breathing Review of Systems Const: Denies: fever(s) or chills Card: Reports: chest pain Resp: Denies: dyspnea GI: Denies: abdominal pain : Denies: dysuria, urinary frequency or urinary urgency Musc: Denies: neck pain or back pain Skin/Breast: Denies: rash [facility] ED PFSH: Medical History No pertinent past medical history Social History Smoking and tobacco/nicotine status: unknown if used tobacco/nicotine Physical Exam Const: COMMON NORMALS: no acute distress GENERAL APPEARANCE: cooperative and comfortable ORIENTATION/CONSCIOUSNESS: Yes awake, Yes oriented to person, Yes oriented to place and Yes oriented to time HENMT: COMMON NORMALS: normocephalic, atraumatic and hearing grossly normal bilaterally HEAD & SCALP: normocephalic and atraumatic Resp: COMMON NORMALS: normal respiratory effort, No retractions, No use of accessory muscles and clear to auscultation bilaterally AUSCULTATION: clear to auscultation bilaterally Cardio: COMMON NORMALS: regular rate, regular rhythm and No murmurs present (Cardio) RATE: regular rate RHYTHM: regular rhythm GI: COMMON NORMALS: Soft to palpation and No hepatosplenomegaly present AUSCULTATION: Yes normoactive bowel sounds PALPATION: Yes Soft to palpation, No Tenderness to palpation present (GI), No Guarding due to palpation present (GI) and Yes No hepatosplenomegaly present Extremity: COMMON NORMALS: normal to inspection, capillary refill normal, no clubbing, cyanosis or edema, no calf tenderness and no pedal edema Neuro: SENSORIUM/ORIENTATION: Yes oriented to person, Yes oriented to place and Yes oriented to time Skin: COMMON NORMALS: no rashes or lesions noted GENERAL SKIN EXAM: no rashes or lesions noted Course Vital Signs: Vital signs: Vital Signs Temperature 98.2 F 04/07/24 09:20 Pulse Rate 76 04/07/24 12:47 Blood Pressure 131/91 04/07/24 12:47 Pulse Oximetry 100 04/07/24 12:47 Oxygen Delivery Me thod Room Air 04/07/24 11:00 MDM - Chest Pain Medical Decision Making Labs and imaging reviewed chest pain is reproducible on palpation and with deep inspiration. Noncardiac in nature. Will discharge patient home with anti-inflammatories to use as needed follow-up as needed Lab Data 04/07/24 09:34 04/07/24 09:34 Radiology Impressions Chest X-Ray 04/07/24 09:21 Impression: The markings in the upper lung zones are increased, similar to the previous study. PA and lateral imaging would be helpful for further evaluation. No new consolidation is noted. Laboratory Results WBC 7.80 10^3/uL (3.29-11.43) 04/07/24 09:34 RBC 4.13 10^6/uL (3.85-5.65) 04/07/24 09:34 Hgb 12.70 g/dL (11.27-16.99) 04/07/24 09:34 Hct 37.7 % (36-47) 04/07/24 09:34 MCV 91.3 fl (85-98) 04/07/24 09:34 MCH 30.8 pg (27-33) 04/07/24 09:34 MCHC 33.7 g/dL (30-55) 04/07/24 09:34 RDW 13.2 % (12.1-15.1) 04/07/24 09:34 Plt Count 276 10^3/cmm (157-399) 04/07/24 09:34 MPV 9.4 fL (7.4-10.4) 04/07/24 09:34 Neut % (Auto) 56.3 % 04/07/24 09:34 Lymph % (Auto) 35.3 % 04/07/24 09:34 [place] % (Auto) 6.3 % 04/07/24 09:34 Eos % (Auto) 1.3 % 04/07/24 09:34 Baso % (Auto) 0.5 % 04/07/24 09:34 Neut # (Auto) 4.40 10^3/uL (1.8-7.7) 04/07/24 09:34 Lymph # (Auto) 2.8 10^3/uL (0.8-4.8) 04/07/24 09:34 [place] # (Auto) 0.5 10^3/uL (0.2-0.9) 04/07/24 09:34 Eos # (Auto) 0.1 10^3/uL (0.0-0.8) 04/07/24 09:34 Baso # (Auto) 0.0 10^3/uL (0.0-0.1) 04/07/24 09:34 Nucleated RBC % (auto) 0 % 04/07/24 09:34 Nucleated RBCs # 0.0 /100WBC 04/07/24 09:34 Sodium 138 mmol/L (136-145) 04/07/24 09:34 Potassium 4.0 mmol/L (3.5-5.1) 04/07/24 09:34 Chloride 106 mmol/L (98-107) 04/07/24 09:34 Carbon Dioxide 20 mmol/L (22-29) L 04/07/24 09:34 Anion Gap 16.0 (5-19) 04/07/24 09:34 BUN 12 mg/dL (6-20) 09/03/24 09:34 Creatinine 0.6 mg/dL (0.5-0.9) 04/07/24 09:34 GFR Calculation 114.4 mL/min (90-130) 04/07/24 09:34 Glucose 92 mg/dL (65-115) 04/07/24 09:34 Calculated Osmolality 285 mOsm/kg (285-295) 04/07/24 09:34 Calcium 8.4 mg/dL (8.5-10.5) L 04/07/24 09:34 Total Bilirubin 0.2 mg/dL (0.15-1.2) 04/07/24 09:34 AST 13 U/L (0-32) 04/07/24 09:34 ALT 10 U/L (0-33) 04/07/24 09:34 Alkaline Phosphatase 57 U/L (35-105) 04/07/24 09:34 Total Protein 7.3 g/dL (6.6-8.7) 04/07/24 09:34 Albumin 4.1 g/dL (3.5-5.2) 04/07/24 09:34 Globulin 3.2 g/dL (1.3-4.6) 04/07/24 09:34 All radiology interpretation(s) finalized by discharge Discharge Plan Discharge Patient Disposition: Home Clinical Impression: Anterior chest wall pain Condition: Stable Prescriptions: New diclofenac sodium 75 mg tablet,delayed release (DR/EC) 75 mg PO Q12H PRN (Reason: pain) Qty: 20 0RF No Action medroxyprogesterone [Depo-Provera] 150 mg/mL suspension IM albuterol sulfate [Ventolin HFA] 90 mcg/actuation HFA aerosol inhaler 2 puff inhalation QID Qty: 6.7 0RF doxycycline hyclate 100 mg tablet 100 mg PO BID 7 Days Qty: 14 0RF Discharge Orders: Discharge ED (Routine); Ordered 04/07/24 Ordered By: Miguel Rm Discharge Diet: Usual diet Discharge Activity: Increase activity as tolerated Patient Instructions: Opioid Safety, Pain Management Activity Restrictions/Additional Instructions: Thank you for choosing [facility] for your healthcare needs today. It is very important that you follow up as instructed or that you return to the Emergency Department should you have concerns or if your condition changes or worsens in any way. You are seen in the emergency room with complaints of chest pain. Chest pain was related to movement and palpation across the anterior chest wall. EKG was normal and the rest of your labs appeared normal. Will discharge you home with anti-inflammatories to use as needed follow-up if there is any change in your symptoms Coding Level of Care Code ED [employer] for Franck Stanford
[2024-04-07 10:30] VITALS: BP 115/86; PULSE 67; O2SAT 98
[2024-04-07 11:00] VITALS: BP 129/75; PULSE 67; O2SAT 97
[2024-04-07 12:47] VITALS: BP 131/91; PULSE 76; O2SAT 100
== END 2024-04-07 12:48 | disposition home or self-care (01) ==
PROVIDERS: Emergency Provider Family Medicine
DX: R07.89 Other chest pain (principal)
CPT/HCPCS: 36415; 71045; 80053; 85025; 93005; 99285

== ENCOUNTER 2024-07-24 22:31 | Emergency (ER) | payer MEDICAID, SELFPAY ==
[2024-07-24 22:40] VITALS: BP 164/81; PULSE 91; RESP 17; TEMP 36.9; O2SAT 97; BMI 41.8
--- NOTE | 2024-07-24 23:14 | XRR_ITS ---
PROCEDURE INFORMATION: Exam: XR Left Shoulder Exam date and time: 07/24/2024 11:16 PM Age: 33 years old Clinical indication: Patient HX: C/O worsening left shoulder pain over last few days. No injury. ; Additional info: Pain no trauma TECHNIQUE: Imaging protocol: Radiologic exam of the left shoulder. Views: 2 or more views. COMPARISON: CR XR chest 1V portable [id number] 04/07/2024 9:43 AM FINDINGS: Bones/joints: Normal. Soft tissues: Normal. XR/XR shoulder LT min 2V* [id number] IMPRESSION: No acute findings.
--- NOTE | 2024-07-24 23:14 | ED_ITS ---
HPI - Extremity Problem General: Chief complaint: Extremity Injury, Upper Stated complaint: unable to move left shoulder Time Seen by Provider: 07/24/24 23:08 History of Present Illness: Patient presents to the ER with complaints of left shoulder pain times last 2 days. She does not know if she injured it. It hurts when she tries to lift it away from her body. Her daughter stepped on a nail and was brought in to be checked out otherwise patient was not got get checked out herself. Related Data Home Medications Medication Instructions Recorded Confirmed medroxyprogesterone 150 mg/mL mg IM 09/03/23 07/17/24 intramuscular suspension (Depo-Provera) Previous Rx's Medication Instructions Recorded azithromycin 500 mg tablet 500 mg PO DAILY 5 days #5 tabs 07/17/24 (Zithromax) promethazine-DM 6.25 mg-15 mg/5 mL 10 ml PO Q6H PRN cough #473 mL 07/17/24 oral syrup Allergies Allergy/AdvReac Type Severity Reaction Status Date / Time naproxen Allergy Unknown Verified 07/24/24 22:43 Sulfa (Sulfonamide Allergy ALGY-Difficulty Verified 07/24/24 22:43 Antibiotics) Breathing Review of Systems General: Reports: 10 or more systems reviewed and unremarkable except in HPI and below PFSH ED PFSH: Medical History (Updated 07/25/24 @ 00:36 by Jevon Astorga DO) No pertinent past medical history Social History Smoking and tobacco/nicotine status: current every day tobacco/nicotine user Physical Exam Const: COMMON NORMALS: no acute distress, average body habitus, patient oriented x3, no limitations, healthy appearing, alert and well nourished HENMT: COMMON NORMALS: normocephalic, atraumatic, hearing grossly normal bilaterally, external ears normal, Normal external nose present and moist oral mucous membranes HEAD & SCALP: normocephalic and atraumatic NOSE: Normal external nose present EXTERNAL EAR: Yes external ears normal Neck/C-Spine: COMMON NORMALS: no JVD Chest: COMMONS NORMALS: normal inspection of the chest and normal palpation of entire chest wall Resp: COMMON NORMALS: normal respiratory effort, No retractions, No use of accessory muscles and clear to auscultation bilaterally AUSCULTATION: clear to auscultation bilaterally Cardio: COMMON NORMALS: no JVD, regular rate, regular rhythm, S1 normal heart sound present, S2 normal heart sound present, No gallops present (Cardio), No clicks present (Cardio), No murmurs present (Cardio) and No rub (Cardio) RATE: regular rate RHYTHM: regular rhythm HEART SOUNDS: S1 normal heart sound present and S2 normal heart sound present GI: COMMON NORMALS: Normal to inspection, nondistended, normoactive bowel sounds present, Soft to palpation, non-tender, No hepatosplenomegaly present and no masses PALPATION: Yes Soft to palpation and Yes No hepatosplenomegaly present Extremity: NARRATIVE EXTREMITY EXAM: Pain with palpation over anterior shoulder joint region, limited range of motion with a B duction secondary to pain. Neuro: COMMON NORMALS: patient oriented x3 SENSORIUM/ORIENTATION: Yes alert Course Vital Signs: Vital signs: Vital Signs Temperature 98.5 F 07/24/24 22:40 Pulse Rate 91 07/24/24 22:40 Respiratory Rate 17 07/24/24 22:40 Blood Pressure 164/81 07/24/24 22:40 Pulse Oximetry 97 07/24/24 22:40 Oxygen Delivery Me thod Room Air 07/24/24 22:40 MDM - Extremity (Nontraumatic) Medical Decision Making Left shoulder was x-rayed read by the radiologist as negative for acute fracture. Patient be discharged home. Medical Records I reviewed the patient's medical records. Lab Data I reviewed the patient's lab results. Radiology Impressions Shoulder X-Ray 07/24/24 23:14 IMPRESSION: No acute findings. All radiology interpretation(s) finalized by discharge Discharge Plan Discharge Patient Disposition: Home Clinical Impression: Acute pain of left shoulder Condition: Stable Prescriptions: No Action medroxyprogesterone [Depo-Provera] 150 mg/mL suspension IM promethazine-DM 6.25-15 mg/5 mL syrup 10 ml PO Q6H PRN (Reason: cough) Qty: 473 0RF azithromycin [Zithromax] 500 mg tablet 500 mg PO DAILY 5 Days Qty: 5 0RF Discharge Orders: Discharge ED (Routine); Ordered 07/25/24 Ordered By: Jevon Astorga Patient Instructions: Shoulder Pain (ED) Activity Restrictions/Additional Instructions: The x-ray performed in ER did not show any acute fractures or significant osteoarthritis. Please follow-up with your family practice physician within next 7 days for further evaluation and treatment. Stand Alone Forms: Work/School Release Coding Level of Care Code ED Regulatory Affairs Internship for Franck Stanford
== END 2024-07-25 01:01 | disposition home or self-care (01) ==
PROVIDERS: Emergency Provider Emergency Medicine
DX: M25.512 Pain in left shoulder (principal); Z72.0 Tobacco use
CPT/HCPCS: 73030; 99283

== ENCOUNTER 2024-09-01 07:36 | Emergency (ER) | payer MEDICAID, SELFPAY ==
[2024-09-01] VITALS (11 sets, daily range): BP systolic 123–142; BP diastolic 72–86; PULSE 115–136; RESP 16–22; TEMP 37.6; O2SAT 90–98; BMI 44.2
--- NOTE | 2024-09-01 08:20 | ECG_ITS ---
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 Measurements Intervals [place] Rate: 131 P: 71 MT: 176 QRS: 65 QRSD: 71 T: 51 QT: 333 QTc: 493 Interpretive Statements SINUS TACHYCARDIA NONSPECIFIC T-WAVE ABNORMALITY Compared to ECG 04/07/2024 09:19:35 T-wave abnormality now present Sinus rhythm no longer present Electronically Signed On 09-03-2024 11:24:57 MOLD CUTTING MACHINE OPERATOR by Raleigh Koch M.D. [email or web address]
--- NOTE | 2024-09-01 08:20 | XR_ITS ---
WS: [id number] Exam: XR chest 1V portable [id number] Date/Time of Exam: 09/01/2024 8:25 AM Reason For Exam: dyspnea/cough Comparison 04/07/2024. Lungs are fully expanded and clear. Normal cardiomediastinal silhouette and regional bony elements. N o pleural effusion. XR/XR chest 1V portable [id number] IMPRESSION: 1. No acute cardiopulmonary finding.
--- NOTE | 2024-09-01 08:42 | ED_ITS ---
HPI - URI/Sore Throat 2 General: Chief Complaint: Upper Respiratory Infection Stated Complaint: SOB Time Seen by Provider: 09/01/24 07:53 History of Present Illness: Toyin is a 33-year-old female with history of tobacco use presenting today for shortness of breath. She reports 2 weeks of progressively worsening shortness of breath, nausea/vomiting, right-sided pleuritic chest pain, chills and subjective fevers, and malaise. She denies any history of asthma. Has not tried anything at home. Denies diarrhea. Poor p.o. intake over the last few days. Associated symptoms: Reports chills, chest pain ( R sided, worse with coughing/deep breaths ), nausea and vomiting; Deny abdominal pain, diarrhea or headache(s) Related Data Home Medications ?Medication ?Instructions ?Recorded ?Confirmed medroxyprogesterone 150 mg/mL 150 mg IM Q3M 09/03/23 0 09/01/24 intramuscular suspension (Depo-Provera) Previous Rx's ?Medication ?Instructions ?Recorded albuterol sulfate 90 mcg/actuation 2 puff inhalation Q 6H PRN 08/23/24 aerosol inhaler (Ventolin HFA) shortness of breath or wheezing #8.5 grams levofloxacin 750 mg tablet 750 mg PO DAILY 7 days #7 t abs 08/28/24 prednisone 20 mg tablet 60 mg (3 x 20 mg) PO DAILY 5 days 08/28/24 #15 tabs albuterol sulfate 90 mcg/actuation 2 inh inhalation Q4 H PRN shortness 09/01/24 aerosol inhaler of breath or wheezing #18 gr ams benzonatate 200 mg capsule 200 mg PO TID PRN cough #20 caps 09/01/24 ondansetron HCl 4 mg tablet 4 mg PO Q6H PRN nausea and 09/01/24 vomiting #20 tabs Allergies Allergy/AdvReac Type Severity Reaction Status Date / Time naproxen Allergy Unknown Verified 08/28/24 16:33 Sulfa (Sulfonamide Allergy ALGY-Difficulty Verified 08/28/24 16:33 Antibiotics) Breathing Review of Systems 2 Const: Reports: chills, body aches, fatigue and malaise ENMT: Denies: throat pain Card: Reports: chest pain ( R sided, worse with coughing/deep breaths ); Denies: palpitations Resp: Reports: dyspnea, productive cough, wheezing and chest congestion GI: Reports: nausea and vomiting; Denies: abdominal pain or diarrhea Neuro: Denies: headache(s) PFSH ED 2 PFSH: Medical History (Updated 09/09/24 @ 00:00 by ELY Wong) No pertinent past medical history Social History Smoking and tobacco/nicotine status: never used tobacco/nicotine Physical Exam 2 Const: COMMON NORMALS: patient oriented x3 GENERAL APPEARANCE: cooperative and ill appearing NUTRITIONAL APPEARANCE: obese HENMT: COMMON NORMALS: normocephalic and atraumatic HEAD & SCALP: n ormocephalic and atraumatic Eye: COMMON NORMALS: EOMs intact bilaterally and conjunctivae normal C ONJUNCTIVA: Yes conjunctivae normal Chest: CHEST: Yes Symmetrical chest wall rise Resp: EFFORT & INSPECTION: Yes able to speak in complete sentences, Yes tachypneic and Yes Actively coughing AUSCULTATION: crackles Laterality: bilateral and wheezes scattered wheezes and throughout Cardio: COMMON NORMALS: regular rhythm RATE: tachycardic RHYTHM: regular rhythm GI: COMMON NORMALS: Normal to inspection, nondistended, normoactive bowel sounds present, Soft to palpation and non-tender PALPATION: Yes Soft to palpation Neuro: COMMON NORMALS: patient oriented x3 Course 2 Vital Signs: Vital signs: Vital Signs Temperature 99.6 F 09/01/24 07:49 Pulse Rate 120 H 09/01/24 11:56 Respiratory Rate 18 09/01/24 11:01 Blood Pressure 139/81 09/01/24 11:56 Pulse Oximetry 92 09/01/24 11:56 Oxygen Delivery Me thod Room Air 09/01/24 08:42 Fraction of Inspir ed Oxygen 21 09/01/24 08:42 MDM - URI/Sore Throat Medical Decision Making Toyin is a 33-year-old female with history of tobacco use presenting today for shortness of breath. Her vitals were significant for tachycardia to 120s, blood pressure, mildly elevated temperature, and mild tachypnea. She did test positive for influenza A. She was given a DuoNeb treatment, 1 L fluids, Compazine, and Solu-Medrol with improvement in her symptoms. Labs notable for leukocytosis to 14, normal lactic acid, and normal urinalysis. Chest x-ray overall unremarkable. Given that symptoms have been ongoing for over 2 weeks, we prescribed Levaquin on discharge. Also sent in benzonatate for cough, albuterol inhaler for wheezing, and Zofran for nausea. Discussed return precautions. Patient amenable to the plan and discharged home in stable condition. Lab Data 09/01/24 08:52 09/01/24 08:52 Radiology Impressions Chest X-Ray 09/01/24 08:20 IMPRESSION: 1. No acute cardiopulmonary finding. Laboratory Results WBC 13.96 10^3/uL (3.29-11.43) H 09/01/24 08:52 RBC 3.98 10^6/uL (3.85-5.65) 09/01/24 08:52 Hgb 12.30 g/dL (11.27-16.99) 09/01/24 08:52 Hct 36.9 % (36-47) 09/01/24 08:52 MCV 92.7 fl (85-98) 09/01/24 08:52 MCH 30.9 pg (27-33) 09/01/24 08:52 MCHC 33.3 g/dL (30-55) 09/01/24 08:52 RDW 14.4 % (12.1-15.1) 09/01/24 08:52 Plt Count 261 10^3/cmm (157-399) 09/01/24 08:52 MPV 9.0 fL (7.4-10.4) 09/01/24 08:52 Neut % (Auto) 79.8 % 09/01/24 08:52 Lymph % (Auto) 12.0 % 09/01/24 08:52 Liberty % (Auto) 6.2 % 09/01/24 08:52 Eos % (Auto) 0.6 % 09/01/24 08:52 Baso % (Auto) 0.3 % 09/01/24 08:52 Neut # (Auto) 11.14 10^3/uL (1.8-7.7) H 09/01/24 08:52 Lymph # (Auto) 1.7 10^3/uL (0.8-4.8) 09/01/24 08:52 Liberty # (Auto) 0.9 10^3/uL (0.2-0.9) 09/01/24 08:52 Eos # (Auto) 0.1 10^3/uL (0.0-0.8) 09/01/24 08:52 Baso # (Auto) 0.0 10^3/uL (0.0-0.1) 09/01/24 08:52 Nucleated RBC % (auto) 0 % 09/01/24 08:52 Nucleated RBCs # 0.0 /100WBC 09/01/24 08:52 Sodium 137 mmol/L (136-145) 09/01/24 08:52 Potassium 3.5 mmol/L (3.5-5.1) 09/01/24 08:52 Chloride 100 mmol/L (98-107) 09/01/24 08:52 Carbon Dioxide 22 mmol/L (22-29) 09/01/24 08:52 Anion Gap 18.5 (5-19) 09/01/24 08:52 BUN 15 mg/dL (6-20) 09/01/24 08:52 Creatinine 0.8 mg/dL (0.5-0.9) 09/01/24 08:52 GFR Calculation 82.1 mL/min (90-130) L 09/01/24 08:52 Glucose 95 mg/dL (65-115) 09/01/24 08:52 Calculated Osmolality 285 mOsm/kg (285-295) 09/01/24 08:52 Lactic Acid 1.6 mmol/L (0.5-2.2) 09/01/24 08:52 Calcium 8.5 mg/dL (8.5-10.5) 09/01/24 08:52 Total Bilirubin 0.4 mg/dL (0.15-1.2) 09/01/24 08:52 AST 12 U/L (0-32) 09/01/24 08:52 ALT 13 U/L (0-33) 09/01/24 08:52 Alkaline Phosphatase 58 U/L (35-105) 09/01/24 08:52 Troponin T Baseline < 6 ng/L (0-10) 09/01/24 08:52 Troponin T 120 Minute 6.00 ng/L (0-10) 09/01/24 11:02 Delta Troponin T [id number] ABS# (0-10) 09/01/24 11:02 Total Protein 6.4 g/dL (6.6-8.7) L 09/01/24 08:52 Albumin 4.2 g/dL (3.5-5.2) 09/01/24 08:52 Globulin 2.2 g/dL (1.3-4.6) 09/01/24 08:52 Urine Color Yellow (Yellow) 09/01/24 08:53 Urine Appearance Clear (CLEAR) 09/01/24 08:53 Urine pH 5.5 (5-7) 09/01/24 08:53 Ur Specific Ward 1.019 (1.005-1.030) 09/01/24 08:53 Urine Protein Negative (Negative) 09/01/24 08:53 Urine Glucose (UA) Negative (Normal) 09/01/24 08:53 Urine Ketones Negative (Negative) 09/01/24 08:53 Urine Blood Negative (Negative) 09/01/24 08:53 Urine Nitrate Negative (Negative) 09/01/24 08:53 Urine Bilirubin Negative (Negative) 09/01/24 08:53 Urine Urobilinogen 0.2 mg/dL (Negative) 09/01/24 08:53 Ur Leukocyte Esterase Negative (Negative) 09/01/24 08:53 Coronavirus (PCR) Negative (Negative) 09/01/24 07:57 Influenza A (PCR) Positive (Negative) 09/01/24 07:57 Influenza Type B (PCR) Negative (Negative) 09/01/24 07:57 RSV (PCR) Negative (Negative) 09/01/24 07:57 All radiology interpretation(s) finalized by discharge Discharge Plan Discharge Patient Disposition: Home Clinical Impression: Influenza Condition: Stable Prescriptions: New albuterol sulfate 90 mcg/actuation HFA aerosol inhaler 2 inh INHALATION Q4H PRN (Reason: shortness of breath or wheezing) Qty: 18 0RF ondansetron HCl 4 mg tablet 4 mg PO Q6H PRN (Reason: nausea and vomiting) Qty: 20 0RF benzonatate 200 mg capsule 200 mg PO TID PRN (Reason: cough) Qty: 20 0RF No Action medroxyprogesterone [Depo-Provera] 150 mg/mL suspension 150 mg IM Q3M prednisone 20 mg tablet 60 mg PO DAILY 5 Days Qty: 15 0RF levofloxacin 750 mg tablet 750 mg PO DAILY 7 Days Qty: 7 0RF albuterol sulfate [Ventolin HFA] 90 mcg/actuation HFA aerosol inhaler 2 puff inhalation Q6H PRN (Reason: shortness of breath or wheezing) Qty: 8.5 0RF Discharge Orders: Discharge ED (Routine); Ordered 09/01/24 Ordered By: Miguel Rm Patient Instructions: Opioid Safety, Pain Management Activity Restrictions/Additional Instructions: You tested positive for influenza A. You are prescribed an albuterol inhaler, benzonatate for cough, and ondansetron for nausea. Recommend continuing to drink lots of fluids. Print Language: Montenegrin Coding Level of Care Code ED Substance Abuse Technician for Franck Stanford
[2024-09-01] MEDS: ipratropium-albuterol 3 mL Neb INHALATION (08:58)
[2024-09-01 08:59] LABS: Basophils % 0.3 %; Eosinophils # 0.1 10^3/uL (0.0-0.8); Eosinophils % 0.6 %; Hematocrit 36.9 % (36-47); Lymphocytes # 1.7 10^3/uL (0.8-4.8); Mean Corpuscular HGB Conc 33.3 g/dL (30-55); Mean Corpuscular Hemoglobin 30.9 pg (27-33); Mean Corpuscular Volume 92.7 fl (85-98); Monocytes # 0.9 10^3/uL (0.2-0.9); Monocytes % 6.2 %; Neutrophils # 11.14 10^3/uL (1.8-7.7); Neutrophils % 79.8 %; Nucleated Red Blood Cells % 0 %; Platelet Count 261 10^3/cmm (157-399); Red Blood Count 3.98 10^6/uL (3.85-5.65); Red Cell Distribution Width 14.4 % (12.1-15.1); White Blood Count 13.96 10^3/uL (3.29-11.43)
[2024-09-01 09:06] LABS: Covid PCR NEGATIVE (Negative); Influenza A POSITIVE (Negative); Influenza B NEGATIVE (Negative); Respiratory Syncytial Virus Ce NEGATIVE (Negative)
[2024-09-01] MEDS: methylPREDNISolone sod succ 125 mg/2 mL INJ IVP (09:10)
[2024-09-01] MEDS: prochlorperazine 10 mg/2 mL Inj IVP (09:11)
[2024-09-01] MEDS: lactated ringers 1,000 ML 999 ML IV (09:12)
[2024-09-01 09:16] LABS: Add Urine Microscopic? NO; Bilirubin Urine Negative (Negative); Blood Urine Negative (Negative); Glucose Urine UA Negative (Normal); Ketones Urine Negative (Negative); Leukocyte Esterase Urine Negative (Negative); Nitrate Urine Negative (Negative); Protein Urine Negative (Negative); Specific Gravity, Urine 1.019 (1.005-1.030); Urine Appearance Clear (CLEAR); Urine Color Yellow (Yellow); Urobilinogen Urine 0.2 mg/dL (Negative); pH Urine 5.5 (5-7)
[2024-09-01 09:19] LABS: Alanine Aminotransferase 13 U/L (0-33); Albumin Level 4.2 g/dL (3.5-5.2); Alkaline Phosphatase 58 U/L (35-105); Anion Gap 18.5 (5-19); Aspartate Amino Transferase 12 U/L (0-32); Blood Urea Nitrogen 15 mg/dL (6-20); Calcium 8.5 mg/dL (8.5-10.5); Carbon Dioxide 22 mmol/L (22-29); Chloride 100 mmol/L (98-107); Creatinine Clr Calc Pharmacy 120.1321; Globulin 2.2 g/dL (1.3-4.6); Glomerular Filtration Rate 82.1 mL/min (90-130); Glucose 95 mg/dL (65-115); Lactic Sepsis W/Reflex 1.6 mmol/L (0.5-2.2); Osmolality Calculated 285 mOsm/kg (285-295); Potassium 3.5 mmol/L (3.5-5.1); Sodium 137 mmol/L (136-145); Total Bilirubin 0.4 mg/dL (0.15-1.2); Total Protein 6.4 g/dL (6.6-8.7)
[2024-09-01 09:20] LABS: Troponin(5th) Baseline < 6 ng/L (0-10)
[2024-09-01 09:34] LABS: Charge for UA Resulting for Rev
--- NOTE | 2024-09-01 10:30 | ECG_ITS ---
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 Measurements Intervals [place] Rate: 124 P: 71 MO: 139 QRS: 62 QRSD: 76 T: 51 QT: 407 QTc: 586 Interpretive Statements SINUS TACHYCARDIA NONSPECIFIC T-WAVE ABNORMALITY Compared to ECG 09/01/2024 07:53:25 No significant changes Electronically Signed On 09-05-2024 13:49:19 PIZZA DRIVER by Raleigh Koch M.D. [email or web address]
[2024-09-01 11:36] LABS: Troponin 5 2HR Delta 0.00001 ABS# (0-10)
== END 2024-09-01 11:56 | disposition home or self-care (01) ==
PROVIDERS: Emergency Provider Family Medicine
DX: J10.1 Influenza due to other identified influenza virus with other respiratory manifestations (principal); Z11.52 Encounter for screening for COVID-19
CPT/HCPCS: 36415; 71045; 80053; 81003; 83605; 84484; 85025; 87637; 93005; 94640; 96374; 96375; 99285; J0780; J2919; J7120

== ENCOUNTER 2025-03-06 14:03 | Emergency (ER) | payer MEDICAID, SELFPAY ==
[2025-03-06 14:04] VITALS: BP 150/108; PULSE 98; RESP 16; TEMP 36.9; O2SAT 98; BMI 43.5
--- NOTE | 2025-03-06 14:04 | XRR_ITS ---
PROCEDURE INFORMATION: Exam: XR Left Knee Exam date and time: 03/06/2025 2:24 PM Age: 34 years old Clinical indication: Pain; Knee; Left; Additional info: Lt knee pain/swelling; Twisting injury/felt pop x 1 week ago TECHNIQUE: Imaging protocol: Radiologic exam of the left knee. Views: 3 views. COMPARISON: No relevant prior studies available. FINDINGS: Bones/joints: There are mild degenerative changes of the knee joint, predominantly involving the medial joint compartment. Marginal osteophytes along the medial tibial plateau, and medial femoral condyle. No acute fracture or subluxation. No periosteal reaction or callus formation. Soft tissues: Normal. XR/XR knee LT 3V* [id number] IMPRESSION: 1. Mild tricompartmental osteoarthritis of the knee. 2. No acute fracture or subluxation.
--- NOTE | 2025-03-06 14:21 | ED_ITS ---
HPI - Extremity Problem General: Chief complaint: Extremity Injury, Lower Stated complaint: lt knee inj Time Seen by Provider: 03/06/25 14:04 Source: patient Mode of arrival: ambulatory Limitations: no limitations History of Present Illness: Patient is a 34-year-old female presents the emergency department with left knee pain beginning 3 days ago. States that she was working she felt a pop suddenly in her left knee, pain has steadily worsened since, has been constant. Has remained the ability to walk. No swelling of the joint or redness, no radiation of the pain proximally or distally. Has never had any previous surgeries on the left knee, has been using ice and heat without relief. Also has been taking Tylenol ibuprofen, no compression. Vital stable, no pain in her calf. No neurovascular complaints. No trauma reported. MD Complaint: joint pain Onset (ago): day(s) Pain Consistency: constant Location: left and knee Quality: constant and other (Throbbing) Radiation: none Exacerbating factors: range of motion and weight bearing Associated symptoms: Deny chest pain, fever(s) or rash Related Data Home Medications ?Medication ?Instructions ?Recorded ?Confirmed medroxyprogesterone 150 mg/mL 150 mg IM Q3M 09/03/23 0 03/06/25 intramuscular suspension (Depo-Provera) diphenhydramine HCl 25 mg tablet 25 mg PO TID PRN vanessa rgies 03/06/25 03/06/25 (Benadryl Allergy) Previous Rx's ?Medication ?Instructions ?Recorded ketorolac 10 mg tablet 10 mg PO Q8H PRN pain #15 ta bs 03/06/25 prednisone 20 mg tablet 60 mg (3 x 20 mg) PO ONCE 5 days 03/06/25 #15 tabs Allergies Allergy/AdvReac Type Severity Reaction Status Date / Time naproxen Allergy Unknown Verified 03/06/25 14:08 Sulfa (Sulfonamide Allergy ALGY-Difficulty Verified 03/06/25 14:08 Antibiotics) Breathing Review of Systems General: Reports: 10 or more systems reviewed and unremarkable except in HPI and below Const: Denies: fever(s) or chills Card: Denies: chest pain Resp: Denies: dyspnea or productive cough GI: Denies: abdominal pain, nausea, vomiting or diarrhea : Denies: flank pain Musc: Reports: joint pain (Left knee) and decrease in muscle mass; Denies: neck pain, back pain, extremity pain, extremity swelling, joint swelling, joint redness, joint warmth, limited range of motion or muscle weakness Skin/Breast: Denies: rash Neuro: Denies: headache(s), numbness in extremities or weakness in extremities PFSH ED PFSH: Medical History General counseling and advice on contraceptive management gets Depo Provera at health dept History of ADHD Severe obesity (BMI >= 40) Nicotine dependence, cigarettes, with other nicotine-induced disorders Chronic cough Surgical History No pertinent past surgical history Family History Father No problems noted. Mother No problems noted. Other Diabetes mellitus, type 2 Hypertension Seizure disorder Social History Smoking and tobacco/nicotine status: current every day tobacco/nicotine user cigarettes Packs smoked per day: 0.5 Alcohol intake: never Substance/Drug Use: never Household members: children Marital status: Number of children: 2 Highest education level completed: High School Graduate Current occupational status: employed Current occupation: [employer] Physical Exam Const: COMMON NORMALS: no acute distress, patient oriented x3, no limitations, healthy appearing, alert and well nourished NUTRITIONAL APPEARANCE: obese HENMT: COMMON NORMALS: normocephalic and atraumatic HEAD & SCALP: nor mocephalic and atraumatic Neck/C-Spine: COMMON NORMALS: full ROM, supple and no meningeal signs Resp: COMMON NORMALS: normal respiratory effort, No use of accessory muscles and clear to auscultation bilaterally AUSCULTATION: clear to auscultation bilaterally Cardio: COMMON NORMALS: regular rate and regular rhythm RATE: regular rate RHYTHM: regular rhythm Extremity: COMMON NORMALS: normal to inspection, full ROM, capillary refill normal, no joint enlargement and no clubbing, cyanosis or edema NARRATIVE EXTREMITY EXAM: No swelling of the left knee. Tender to palpation over the patella, no appreciable joint effusion. No quad tendon tenderness or tibial tubercle tenderness. No tenderness in the popliteal space. Negative tenderness to palpation of the calf and there is no redness or swelling to this area. Distal neurovascular intact. Range of motion full at the left knee, pain worse with flexion, made better with extension. Neuro: COMMON NORMALS: patient oriented x3, moves all extremities, no focal motor deficits and no sensory deficits noted SENSORIUM/ORIENTATION: Yes alert MENINGEAL SIGNS: Yes no meningeal signs Skin: COMMON NORMALS: no rashes or lesions noted GENERAL SKIN EXAM: no rashes or lesions noted Course Vital Signs: Vital signs: Vital Signs Temperature 98.5 F 03/06/25 14:04 Pulse Rate 98 03/06/25 14:04 Respiratory Rate 16 03/06/25 14:04 Blood Pressure 150/108 03/06/25 14:04 Pulse Oximetry 98 03/06/25 14:04 MDM - Extremity (Nontraumatic) Medical Decision Making Patient presented for left knee pain for the past few days, this was atraumatic and stating she felt a pop when she was at work. Obese female on exam, no appreciable joint effusion, swelling, concerns for infection, or any concern for blood clot. The x-ray showing signs of arthritis, I think that this is most contributory factor to her pain complicated by her BMI, may potentially be a small tendon or ligament injury as well. We will have her placed in Jose wrap, we will prescribe steroids and Toradol for home, and she is informed of ways to treat at home. She will follow-up as needed with her regular doctor within a couple of weeks, discharge at this time. Lab Data Radiology Impressions Knee X-Ray 03/06/25 14:04 IMPRESSION: 1. Mild tricompartmental osteoarthritis of the knee. 2. No acute fracture or subluxation. All radiology interpretation(s) finalized by discharge Discharge Plan Discharge Patient Disposition: Home Clinical Impression: Osteoarthritis of left knee Condition: Stable Prescriptions: New prednisone 20 mg tablet 60 mg PO ONCE 5 Days Qty: 15 0RF ketorolac 10 mg tablet 10 mg PO Q8H PRN (Reason: pain) Qty: 15 0RF No Action medroxyprogesterone [Depo-Provera] 150 mg/mL suspension 150 mg IM Q3M diphenhydramine HCl [Benadryl Allergy] 25 mg Tablet 25 mg PO TID PRN (Reason: allergies) Discharge Orders: Discharge ED (Routine); Ordered 03/06/25 Ordered By: Fareed Hu Referrals: Fiordaliza Melendrez MD [Primary Care Provider, Family Practice] Patient Instructions: Pain Management, Patient Portal & Piter Instructions Activity Restrictions/Additional Instructions: OA Knee Discharge Instructions Diagnosis: Osteoarthritis (OA) of the left knee Medications Prescribed: - Prednisone: [dose and duration as prescribed] - Ketorolac (Toradol): [dose and duration as prescribed] Discharge Instructions: 1. Medication Use and Safety - Take prednisone and ketorolac exactly as prescribed. Both medications are intended for short-term use only. - Prednisone is not routinely recommended for OA and should be used only for brief periods if specifically indicated, due to potential adverse effects including immunosuppression, hyperglycemia, and osteoporosis. - Ketorolac is a potent NSAID. Use the lowest effective dose for the shortest possible duration to minimize risks of gastrointestinal, renal, and cardiovascular adverse effects. Do not use other NSAIDs concurrently. - Report any signs of gastrointestinal bleeding (black stools, vomiting blood), new or worsening swelling, shortness of breath, or other concerning symptoms immediately. 2. Nonpharmacologic Management (First-Line) - Exercise: Engage in a regular, ongoing exercise program focusing on low-impact aerobic activity, strength training, and [id number] exercises. Supervised physical therapy is strongly recommended for improving pain and function. - Weight Loss: If overweight or obese, gradual weight reduction is strongly recommended to reduce knee load and improve symptoms. - Self-Management: Participation in self-efficacy and self-management programs is encouraged to optimize long-term outcomes. - Assistive Devices: Use of a cane (contralateral hand) or knee brace may be beneficial for pain relief and function. 3. Other Pharmacologic Options - Topical NSAIDs: Strongly recommended for knee OA, especially in patients at higher risk for systemic NSAID toxicity. - Oral NSAIDs: Remain the mainstay for pharmacologic management, but should be used with caution and for the shortest duration possible. - Acetaminophen: May be considered if NSAIDs are contraindicated, though efficacy is limited. - Duloxetine: May be considered for persistent pain, particularly if there are features of central sensitization or comorbid mood disorder. - Intraarticular Glucocorticoid Injections: Provide short-term pain relief and may be considered for acute exacerbations, but repeated use should be limited due to potential cartilage effects. 4. Treatments Not Recommended - Chronic systemic corticosteroids (including prednisone) are not recommended for OA management outside of specific indications. - Opioids, tramadol, and intraarticular biologic therapies (e.g., platelet-rich plasma, stem cells) are not recommended due to lack of efficacy and/or safety concerns. 5. Follow-Up - Schedule follow-up with primary care or rheumatology/orthopedics within 1?2 weeks to reassess pain control, medication side effects, and to initiate or continue nonpharmacologic interventions. - If symptoms worsen or new side effects develop, seek medical attention promptly. 6. Work Note - The patient is advised to refrain from work from [start date] to [end date] due to acute exacerbation of left knee osteoarthritis and current medication regimen. Return to work will be reassessed at follow-up. Summary of Vance Points: - Emphasize nonpharmacologic management (exercise, weight loss, self- management). - Use NSAIDs and corticosteroids only as indicated and for the shortest duration possible. - Consider alternative pharmacologic and nonpharmacologic options as outlined above. - Close follow-up is essential for monitoring and adjustment of therapy. 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
== END 2025-03-06 15:54 | disposition home or self-care (01) ==
PROVIDERS: Emergency Provider Physician Assistant; PCP Family Medicine
DX: M17.12 Unilateral primary osteoarthritis, left knee (principal); F17.210 Nicotine dependence, cigarettes, uncomplicated
CPT/HCPCS: 73562; 96372; 99284; J1885

== ENCOUNTER 2025-05-30 12:59 | Emergency (ER) | payer MEDICAID, SELFPAY ==
[2025-05-30 13:30] VITALS: BP 172/128; PULSE 92; RESP 18; TEMP 37; O2SAT 98
--- NOTE | 2025-05-30 14:27 | ED_ITS ---
HPI - Headache General: Chief Complaint: Headache Stated Complaint: 3 day headache, Time Seen by Provider: 05/30/25 14:24 Source: patient Mode of arrival: ambulatory Limitations: no limitations History of Present Illness: 34-year-old female states she has a hist ory of migraines. States she had a migraine and started 3 days ago its gradually worsened. States her headache is now a 9 out of 10. States it is worse when she coughs along with having photophobia and phonophobia. She denies a thunderclap headache denies any fevers denies this being the worst headache of her life. Related Data Home Medications ?Medication ?Instructions ?Recorded ?Confirmed medroxyprogesterone 150 mg/mL 150 mg IM Q3M 09/03/23 1 intramuscular suspension (Depo-Provera) diphenhydramine HCl 25 mg tablet 25 mg PO TID PRN vanessa rgies 03/06/25 05/30/25 (Benadryl Allergy) acetaminophen 500 mg tablet 2,000 mg PO Q6H PRN Fever Or Pain 05/30/25 05/30/25 (Tylenol Extra Strength) Allergies Allergy/AdvReac Type Severity Reaction Status Date / Time naproxen Allergy Unknown Verified 03/06/25 14:08 Sulfa (Sulfonamide Allergy ALGY-Difficulty Verified 03/06/25 14:08 Antibiotics) Breathing Review of Systems Neuro: Reports: headache(s) [facility] ED PFSH: Medical History General counseling and advice on contraceptive management gets Depo Provera at health dept History of ADHD Severe obesity (BMI >= 40) Nicotine dependence, cigarettes, with other nicotine-induced disorders Chronic cough Surgical History No pertinent past surgical history Family History Father No problems noted. Mother No problems noted. Other Diabetes mellitus, type 2 Hypertension Seizure disorder Social History Smoking and tobacco/nicotine status: current every day tobacco/nicotine user cigarettes Packs smoked per day: 0.5 Alcohol intake: never Substance/Drug Use: never Household members: children Marital status: Number of children: 2 Highest education level completed: High School Graduate Current occupational status: employed Current occupation: [employer] Physical Exam Const: COMMON NORMALS: no acute distress, patient oriented x3 and healthy appearing HENMT: COMMON NORMALS: normocephalic and atraumatic HEAD & SCALP: normocephalic and atraumatic Eye: COMMON NORMALS: Equal, round and reactive pupils present and EOMs intact bilaterally PUPIL: Yes Equal, round and reactive pupils present Neck/C-Spine: COMMON NORMALS: full ROM, supple and no meningeal signs Chest: COMMONS NORMALS: normal inspection of the chest Resp: COMMON NORMALS: normal respiratory effort Cardio: COMMON NORMALS: regular rate RATE: regular rate Extremity: COMMON NORMALS: normal to inspection and full ROM Neuro: COMMON NORMALS: patient oriented x3, moves all extremities and no focal motor deficits MENINGEAL SIGNS: Yes no meningeal signs Psych: COMMON NORMALS: mental status grossly normal, Normal thought process present and cooperative THOUGHT PROCESS: Normal thought process present Skin: COMMON NORMALS: no rashes or lesions noted and no wounds GENERAL SKIN EXAM: no rashes or lesions noted Course Vital Signs: Vital signs: Vital Signs Temperature 98.6 F 05/30/25 13:30 Pulse Rate 91 05/30/25 14:49 Respiratory Rate 14 05/30/25 14:49 Blood Pressure 145/91 05/30/25 14:49 Pulse Oximetry 96 05/30/25 14:49 Oxygen Delivery Me thod Room Air 05/30/25 14:49 MDM - Headache Medical Decision Making Patient presents today with headache that gradually worsened over the last 3 days with a history of migraine. Differential includes subarachnoid hemorrhage, meningitis. Patient here has no neck stiffness no fever no signs of meningitis. Head CT is normal she has no signs of a subarachnoid hemorrhage no thunderclap headache. She does have a history of migraines and this is similar likely another migraine headache. She does feel improved here after Reglan Benadryl Toradol and morphine. She is stable for discharge at this time she is to follow-up with her PCP. I did review her head CT with her she understands agrees to plan Medical Records I reviewed the patient's medical records. Lab Data Radiology Impressions Head CT 05/30/25 14:[address]: [address] evidence of acute intracranial pathology. 2. Additional findings, as above. All radiology interpretation(s) finalized by discharge Discharge Plan Discharge Patient Disposition: Home Clinical Impression: Migraine Qualifiers: Migraine type: unspecified Status migrainosus presence: without status migrainosus Intractability: not intractable Qualified Code(s): G43.909 - Migraine, unspecified, not intractable, without status migrainosus Condition: Stable Prescriptions: No Action medroxyprogesterone [Depo-Provera] 150 mg/mL suspension 150 mg IM Q3M acetaminophen [Tylenol Extra Strength] 500 mg Tablet 2,000 mg PO Q6H PRN (Reason: Fever Or Pain) diphenhydramine HCl [Benadryl Allergy] 25 mg Tablet 25 mg PO TID PRN (Reason: allergies) Discharge Orders: Discharge ED (Routine); Ordered 05/30/25 Ordered By: Shade Durant Referrals: Fiordaliza Melendrez MD [Primary Care Provider, [facility]] - 4-7 days Discharge Diet: Advance as tolerated Discharge Activity: Resume usual activity Patient Instructions: Migraine Headache (ED) Print Language: New Zealander Coding Level of Care Code ED 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
[2025-05-30] MEDS: diphenhydrAMINE 50 mg/mL SDV 1mL IVP (14:46)
[2025-05-30] MEDS: metoclopramide 5 mg/mL SDV 2 mL 10 MG IVP (14:48)
[2025-05-30 14:49] VITALS: BP 145/91; PULSE 91; RESP 14; O2SAT 96
--- NOTE | 2025-05-30 14:59 | CTR_ITS ---
PROCEDURE INFORMATION: Exam: CT Head Without Contrast Exam date and time: 05/30/2025 3:17 PM Age: 34 years old Clinical indication: Pain; Headache; Additional info: DAO TECHNIQUE: Imaging protocol: Computed tomography of the head without contrast. Axial, coronal and sagittal reformatted images were created and reviewed. Radiation optimization: All CT scans at this facility use at least one of these dose optimization techniques: automated exposure control; mA and/or kV adjustment per patient size (includes targeted exams where dose is matched to clinical indication); or iterative reconstruction. COMPARISON: CT angio headneck* [id number] 10/25/2023 6:28 PM RADIATION DOSE METRICS: Total DLP (mGy-cm): 978.25 FINDINGS: Brain: No CT evidence of acute intracranial hemorrhage or acute territorial infarction. No significant mass effect or midline shift. Basal cisterns patent. Cerebral ventricles: Normal in size and configuration. Paranasal sinuses: Mild polypoid right ethmoid mucosal thickening. No air-fluid levels. Mastoid air cells: Grossly unremarkable. Bones: Unremarkable. No acute fracture. Soft tissues: Grossly unremarkable. CT/CT head wo con* [id number]: 1[address] No CT evidence of acute intracranial pathology. 2. Additional findings, as above.
[2025-05-30] MEDS: morphine 4 mg/mL SDV 1 mL IVP (15:13)
[2025-05-30 15:49] VITALS: PULSE 78; O2SAT 99
== END 2025-05-30 15:54 | disposition home or self-care (01) ==
PROVIDERS: Emergency Provider Emergency Medicine; PCP Family Medicine
DX: G43.909 Migraine, unspecified, not intractable, without status migrainosus (principal); F17.210 Nicotine dependence, cigarettes, uncomplicated
CPT/HCPCS: 70450; 96374; 96375; 99285; J1200; J1885; J2270; J2765

== ENCOUNTER 2025-06-28 16:45 | Emergency (ER) | payer MEDICAID, SELFPAY ==
[2025-06-28 16:59] VITALS: BP 137/89; PULSE 93; RESP 17; TEMP 36.9; O2SAT 99; BMI 43.4
--- NOTE | 2025-06-28 17:07 | XRR_ITS ---
PROCEDURE INFORMATION: Exam: XR Left Knee Exam date and time: 06/28/2025 5:08 PM Age: 34 years old Clinical indication: Pain; Knee; Left; Additional info: Left knee pain TECHNIQUE: Imaging protocol: Radiologic exam of the left knee. Views: 1 or 2 views. COMPARISON: CR XR knee LT 3V* [id number] 03/06/2025 2:24 PM FINDINGS: Bones/joints: Normal. Soft tissues: Normal. XR/XR knee LT 1-2V [id number] IMPRESSION: No acute findings.
--- NOTE | 2025-06-28 17:35 | ED_ITS ---
HPI - Extremity Problem General: Chief complaint: Extremity Injury, Lower Stated complaint: lt knee pain Time Seen by Provider: 06/28/25 17:07 History of Present Illness: Patient is a pleasant 34-year-old female without medical history, was stepping down with left foot, her left knee popped, and started to give out on her. There was not any injury. She did not hit the floor. She is having difficulty with pain, popping, and her left knee giving away. She has never had an issue with her left knee. 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 She has had difficulty with her left knee throbbing, and pain, and difficulty sleeping today. She has tried Tylenol, and ibuprofen at home. She continues to have pain, and throbbing. Associated symptoms: Deny chest pain, fever(s) or rash Related Data Home Medications ?Medication ?Instructions ?Recorded ?Confirmed medroxyprogesterone 150 mg/mL 150 mg IM Q3M 09/03/23 1 08/28/24 intramuscular suspension (Depo-Provera) diphenhydramine HCl 25 mg tablet 25 mg PO TID PRN vanessa rgies 03/06/25 06/28/25 (Benadryl Allergy) acetaminophen 500 mg tablet 2,000 mg PO Q6H PRN Fever Or Pain 05/30/25 06/28/25 (Tylenol Extra Strength) Previous Rx's ?Medication ?Instructions ?Recorded celecoxib 200 mg capsule 200 mg PO DAILY #30 caps methocarbamol 750 mg tablet 750 mg PO Q8H PRN muscle s pasm #30 06/28/25 tabs Allergies Allergy/AdvReac Type Severity Reaction Status Date / Time naproxen Allergy Unknown Verified 06/28/25 08:32 Sulfa (Sulfonamide Allergy ALGY-Difficulty Verified 06/28/25 08:32 Antibiotics) Breathing Review of Systems Const: Denies: fever(s) or chills Card: Denies: chest pain or palpitations Resp: Denies: dyspnea or non-productive cough GI: Denies: abdominal pain, nausea or vomiting : Reports: other (No saddle anesthesia); Denies: flank pain, difficulty voiding or pelvic pain Musc: Reports: extremity pain, joint pain, joint stiffness and limited range of motion; Denies: neck pain, back pain, extremity swelling, joint swelling, joint redness or joint warmth Skin/Breast: Denies: rash or pruritus Neuro: Denies: headache(s) or numbness in extremities Psych: Denies: anxiety or depression PFSH ED PFSH: Medical History Patellofemoral pain syndrome of left knee General counseling and advice on contraceptive management gets Depo Provera at health dept History of ADHD Severe obesity (BMI >= 40) Nicotine dependence, cigarettes, with other nicotine-induced disorders Chronic cough Surgical History No pertinent past surgical history Family History Father No problems noted. Mother No problems noted. Other Diabetes mellitus, type 2 Hypertension Seizure disorder Social History Smoking and tobacco/nicotine status: never used tobacco/nicotine Alcohol intake: never Substance/Drug Use: never Household members: children Marital status: Number of children: 2 Highest education level completed: High School Graduate Current occupational status: employed Current occupation: [employer] Physical Exam Const: COMMON NORMALS: no acute distress, average body habitus, patient oriented x3, no limitations, healthy appearing, alert and well nourished HENMT: COMMON NORMALS: normocephalic, atraumatic and hearing grossly normal bilaterally HEAD & SCALP: normocephalic and atraumatic Neck/C-Spine: COMMON NORMALS: full ROM, no lymphadenopathy, supple and no meningeal signs Lymph: LYMPHATIC: no lymphadenopathy noted Resp: COMMON NORMALS: normal respiratory effort, No retractions and clear to auscultation bilaterally AUSCULTATION: clear to auscultation bilaterally Cardio: COMMON NORMALS: regular rate and regular rhythm RATE: regular rate RHYTHM: regular rhythm GI: COMMON NORMALS: Normal to inspection, nondistended, normoactive bowel sounds present, Soft to palpation, non-tender and No hepatosplenomegaly present PALPATION: Yes Soft to palpation and Yes No hepatosplenomegaly present : COMMON NORMALS: Yes no CVA tenderness BLADDER/KIDNEY EXAM: Yes no CVA tenderness Back/Pelvis: COMMON NORMALS: no CVA tenderness and thoracic and lumbar spine normal to inspection Extremity: COMMON NORMALS: normal to inspection; negative for full ROM LEFT LOWER EXTREMITY: Yes knee joint Left knee: Yes inspection (No edema, no redness or warmth), Yes palpation (tender medially), Yes ROM (decreased due to pain) and Yes special tests Left knee special tests: Patellar tilt test: Negative, Anterior drawer sign: Negative, Anterior Brynn test: Negative, Posterior Brynn test: Negative, Valgus stress test: Negative and Varus stress test: Positive Neuro: COMMON NORMALS: patient oriented x3 SENSORIUM/ORIENTATION: Yes alert MENINGEAL SIGNS: Yes no meningeal signs Psych: COMMON NORMALS: mental status grossly normal, Normal thought process present, cooperative, normal affect and speech normal SPEECH: Yes normal speech THOUGHT PROCESS: Normal thought process present Course Vital Signs: Vital signs: Vital Signs Temperature 98.4 F 06/28/25 16:59 Pulse Rate 93 06/28/25 16:59 Respiratory Rate 17 06/28/25 16:59 Blood Pressure 137/89 06/28/25 16:59 Pulse Oximetry 99 06/28/25 16:59 Oxygen Delivery Me thod Room Air 06/28/25 16:59 MDM - Extremity (Nontraumatic) Medical Decision Making Patient is a 34-year-old female class II. Presented with sudden onset of left k nee pain. She was putting her foot down, carrying a pail, and heard a pop. She has severe left knee pain, awakening her in her sleep. This was sudden today. Wells PE score is 0. No history of oncological issues. This occurred suddenly when stepping today. On exam, she had some medial tenderness with varus stress. Anterior Brynn, anterior and posterior drawer are negative. Plan is to give Toradol and Norflex x 1. We did discuss her work. I was going to give her the night off, however, patient would like to try Jsoe wrap, icing, and elevation, Toradol, and Norflex here, and at home Celebrex, methocarbamol. I would consider meniscal and MCL as concerns of injury. The giving out after a pop sounds meniscal in nature. Patient would like referral to Dr. Wong, on-call orthopedist today, an order has been placed. Medical Records I reviewed the patient's medical records. Lab Data Radiology Impressions Knee X-Ray 06/28/25 17:07 IMPRESSION: No acute findings. All radiology interpretation(s) finalized by discharge ED provider radiology interpretation(s): No acute findings of left knee on my view Discharge Plan Discharge Patient Disposition: Home Clinical Impression: Acute pain of left knee Condition: Stable Prescriptions: New celecoxib 200 mg capsule 200 mg PO DAILY Qty: 30 0RF methocarbamol 750 mg tablet 750 mg PO Q8H PRN (Reason: muscle spasm) Qty: 30 0RF No Action medroxyprogesterone [Depo-Provera] 150 mg/mL suspension 150 mg IM Q3M acetaminophen [Tylenol Extra Strength] 500 mg Tablet 2,000 mg PO Q6H PRN (Reason: Fever Or Pain) diphenhydramine HCl [Benadryl Allergy] 25 mg Tablet 25 mg PO TID PRN (Reason: allergies) Discharge Orders: Discharge ED (Routine); Ordered 06/28/25 Ordered By: Ivy Wolff Referrals: Ciaran Wong DO [Physician, Orthopedics] - 7-10 days Clinical Impression: Acute pain of left knee Fiordaliza Melendrez MD [Primary Care Provider, Family Practice] Discharge Diet: Usual diet Discharge Activity: Use walker/crutches as instructed Patient Instructions: Patient Portal & Piter Instructions, Knee Pain (ED) Activity Restrictions/Additional Instructions: - Make sure you use a cane, for safety. - Ice your left knee, and elevate. Utilize Jose wrap for compression. - Referral to Dr. Wong has been made. They will call you to set up the first available appointment. - Celebrex/celecoxib has been sent to your pharmacy. This is taken once a day. Do not take ibuprofen instead of this medication. Robaxin/methocarbamol has been sent to your pharmacy. Consider cutting in half to avoid increased sedation side effects with your work. - Return to ED with worsening pain, fever greater than 100.4 ?F Thank you for choosing [facility] for your healthcare needs today. You have been screened and evaluated and felt safe for discharge. Health conditions do change or evolve sometimes and as such it is important that you follow up with your Primary Doctor to be re checked, 3-5 days is a general good time frame for follow up. You are always welcome to return to the ED for re assessment if your symptoms are worsening or you have new concerns Print Language: Tamazight Coding Level of Care Code ED Neurosurgery Physician for Franck Stanford
[2025-06-28] MEDS: orphenadrine 30 mg/mL Inj 2 mL 60 MG IM (18:05)
== END 2025-06-28 18:05 | disposition home or self-care (01) ==
PROVIDERS: Emergency Provider Physician Assistant; PCP Family Medicine
DX: M25.562 Pain in left knee (principal)
CPT/HCPCS: 73560; 96372; 99284; J1885; J2360

== ENCOUNTER → 2025-07-08 13:54 | Outpatient (BNVA) | payer MEDICAID, SELFPAY | PROVIDERS: PCP Family Medicine; Visit Provider Orthopaedic Surgery | DX: M22.2X2 Patellofemoral disorders, left knee (principal); M25.562 Pain in left knee | CPT/HCPCS: 73560; 73565 ==

== ENCOUNTER 2025-07-16 07:46 | Outpatient (CLI) | payer MEDICAID, SELFPAY ==
--- NOTE | 2025-07-16 07:49 | XR_ITS ---
WS: [id number] XR chest 2V* [id number] REASON FOR EXAM: 1yr of cough; wheezing, smoker FINDINGS: The chest is unchanged compared to the previous examination of 09/01/2024. Heart and mediastinum are within normal limits. Calcified granulomatous disease bilaterally. No acute pulmonary parenchymal or pleural abnormality. Small lucencies in the upper lung regions may indicate the presence of central lobar emphysema or chronic small airway inflammatory disease. Mild dextroscoliosis of the thoracic spine. XR/XR chest 2V* [id number] IMPRESSION: Stable chest without acute abnormality. Potential chronic lung abnormality as a samina.
== END 2025-07-16 07:47 | disposition home or self-care (01) ==
LOC: RAD 07:48
PROVIDERS: PCP Family Medicine; Visit Provider Family Medicine
DX: R05.3 Chronic cough (principal); R06.2 Wheezing; J98.4 Other disorders of lung
CPT/HCPCS: 71046

== ENCOUNTER 2025-07-19 10:45 | Outpatient (CLI) | payer MEDICAID, SELFPAY ==
--- NOTE | 2025-07-19 11:00 | MR_ITS ---
WS: [id number] MRI LEFT KNEE HISTORY: left knee pain COMPARISON: Radiograph 07/08/2025 Anterior cruciate ligament: Partial tear involving the distal ACL. The posterior band distally is absent. There is increased T2 signal within the mid to distal ACL. Posterior cruciate ligament: Intact. Medial collateral ligament: Intact. Posterior lateral corner structures: Intact. Medial menisci: Intact. Normal signal, size and shape. Lateral meniscus: Intact. Normal signal, size and shape. Extensor mechanism: Distal quadriceps tendon and patellar tendons are intact. Fluid and soft tissue: No joint effusion. Small Mazariegos's cyst. Osseous and articular structures: Patellofemoral compartment: Normal position of the patella. Very mild chondromalacia along the patellar eminence. No marrow edema or fracture. Medial compartment: Mild narrowing of the medial compartment. Small osteophytes along the joint line. Very mild fissuring of the cartilage. No full-thickness defects. No marrow edema. Lateral compartment: Mild narrowing of the lateral compartment with minimal fissuring of the cartilage. No marrow edema or fracture. MR/MR knee LT wo con* [id number] IMPRESSION: 1. No meniscal tear. 2. Partial tear distal ACL involving the posterior band. The posterior band is absent distally and there is a small amount of increased T2 signal within the remaining ACL. Anterior band appears intact. 3. Mild tricompartment chondromalacia. 4. No fracture or marrow edema.
== END 2025-07-19 10:46 | disposition home or self-care (01) ==
LOC: RAD 10:45
PROVIDERS: PCP Family Medicine; Visit Provider Orthopaedic Surgery
DX: S83.32XA Tear of articular cartilage of left knee, current, initial encounter (principal); X58.XXXA Exposure to other specified factors, initial encounter; M94.28 Chondromalacia, other site; M25.562 Pain in left knee
CPT/HCPCS: 73721

== ENCOUNTER 2025-07-26 14:44 | Outpatient (CLI) | payer MEDICAID, SELFPAY ==
--- NOTE | 2025-07-26 15:00 | CT_ITS ---
WS: [id number] CT chest wo con [id number] HISTORY: chronic cough X 1yr, abnormal CXR TECHNIQUE: Axial imaging performed through the thorax. Coronal and sagittal reformats are submitted. All CT scans at [facility] use at least one of these dose optimization techniques: automated exposure control; mA and/or kV adjustment per patient size (includes targeted exams where dose is matched to clinical indication); or iterative reconstruction. CONTRAST: None DLP: 598.08 mGy.cm COMPARISON: 07/16/2025, CT 10/25/2023 Lungs and central airway: Lungs appear normally aerated. Numerous bilateral upper lobe cyst. The cysts are irregular shape with thin but perceptible peralta. These are predominantly in the upper lobes but there are a few similar changes in the lower lobes. Distribution of the cystic changes is both central and peripheral. No air-fluid levels within the cystic structures. There is bronchial wall thickening bilaterally in the upper lobes. Some of the cysts are in continuity with the dilated thick-walled bronchi. No mass. Pleura: Normal. No pleural effusion. Heart and pericardium: Normal size heart with no pericardial effusion. Mediastinum and diaz: Lymph nodes are difficult to evaluate without IV contrast. There are a few benign-appearing lymph nodes. Enlarged lymph nodes at the hilum cannot be excluded. Vessels: Normal size aortic and pulmonary artery. No coronary artery calcifications. Chest wall and lower neck: No soft tissue masses. Upper abdomen: Normal. Osseous structures: No destructive process. CT/CT chest wo con [id number] IMPRESSION: 1. Numerous, bilateral upper lobe irregular shaped cysts. Bizarre shaped cysts are predominantly in the upper lobes. Irregular shaped cyst with perceptible w alls. There is also associated bronchial wall thickening and bronchiectasis. Di fferential includes pulmonary Langerhans' cell histiocytosis, cystic bronchiect asis or prior infection such as pneumocystis pneumonia. Recommend follow-up wit h pulmonology. 2. No pleural effusions. 3. Normal size heart. 4. Normal size pulmonary artery.
== END 2025-07-26 14:45 | disposition home or self-care (01) ==
LOC: RAD 14:45
PROVIDERS: PCP Family Medicine; Visit Provider Family Medicine
DX: R05.3 Chronic cough (principal); R93.89 Abnormal findings on diagnostic imaging of other specified body structures; J84.10 Pulmonary fibrosis, unspecified; J84.81 Lymphangioleiomyomatosis; J47.0 Bronchiectasis with acute lower respiratory infection; B59 Pneumocystosis
CPT/HCPCS: 71250